=== PATIENT | male | born 1965 | race Caucasian/White ===

== ENCOUNTER 2019-05-01 14:22 | Emergency (ER) | payer OTHER ==
[2019-05-01] MEDS ORDERED: ACETAMINOPHEN 325 MG TABLET ONE (14:46)
[2019-05-01] MEDS ORDERED: HYDROCODONE/APAP 10/325 TAB ONE (14:46)
[2019-05-01 15:11] LABS: Absolute Lymphocytes (CBC) 0.6 K/uL (0.7-4.9); Basophils % 0.4 % (0-1.3); Hematocrit 48.1 % (39.6-49.0); Lymphocytes % 5.7 % (15.3-44.8); MPV 8.2 fL (7.6-11.3); RBC Red Blood Cell Count 4.94 M/uL (4.33-5.43)
[2019-05-01 15:12] LABS: Protime INR 3.28
[2019-05-01 15:29] LABS: Albumin 3.3 g/dL (3.4-5.0); Bilirubin Total 1.1 mg/dL (0.2-1.0); Potassium 4.4 mmol/L (3.5-5.1); Protein, Total 6.4 g/dL (6.4-8.2)
--- NOTE | 2019-05-01 16:07 | RAD REPORT ---
EXAM DESCRIPTION: US - Extremity Venous Uni Ltd - 05/01/2019 3:51 pm CLINICAL HISTORY: Left leg pain and swelling COMPARISON: None. TECHNIQUE: Real-time sonographic evaluation of the left lower extremity deep venous system was perfo rmed. FINDINGS: Normal compressibility, flow augmentation, phasic flow and spontaneous flow are identified in the left lower extremity common femoral, superficial femoral, popliteal and posterior tibial vein s. No intraluminal filling defects seen. Nonspecific left inguinal groin lymph nodes are present. IMPRESSION: No DVT in the left lower extremity.
[2019-05-01] MEDS ORDERED: NA CHLORIDE 0.9% 1,000 ML ONE (16:48)
[2019-05-01 18:24] LABS: Blood Morphology Comment NOT SEEN (NOT SEEN); Platelet Estimate ADEQ; Urine White Blood Cell Casts OK
--- NOTE | 2019-05-01 20:34 | EDPHYS ---
Physician Documentation [facility] Name: Rupert Riley Age: 53 yrs Sex: Male : 1965 Arrival Date: 05/01/2019 Time: 14:25 Bed 20 Private MD: ED Physician Riley South HPI: 05/01 14:48 This 53 yrs old Male presents to ER via Ambulatory with complaints of Leg Swelling. pm1 14:48 The patient presents with pain, swelling. The complaints affect the left calf. Context: pm1 The problem was sustained at home, resulted from an unknown cause, the patient can fully bear weight, the patient is able to ambulate. Onset: The symptoms/episode began/occurred yesterday. Modifying factors: The symptoms are alleviated by nothing. the symptoms are aggravated by nothing. Associated signs and symptoms: Pertinent positives: calf tenderness, fever, swelling, Pertinent negatives numbness, tingling. Treatment prior to arrival includes: no previous treatment. Severity of symptoms: in the emergency department the symptoms are unchanged. The patient has experienced a previous episode, approximately 18 years ago, and the symptoms today are exactly the same, Prior DVT to left lower leg. Historical: - Allergies: 14:35 No Known Allergies; ss - Immunization history:: Adult Immunizations up to date. - Social history:: Smoking status: Patient/guardian denies using tobacco. - Ebola Screening: : Patient denies exposure to infectious person Patient denies travel to an Ebola-affected area in the 21 days before illness onset. ROS: 14:48 Eyes: Negative for injury, pain, redness, and discharge, ENT: Negative for injury, pm1 pain, and discharge, Neck: Negative for injury, pain, and swelling, Cardiovascular: Negative for chest pain, palpitations, and edema, Respiratory: Negative for shortness of breath, cough, wheezing, and pleuritic chest pain, Abdomen/GI: Negative for abdominal pain, nausea, vomiting, diarrhea, and constipation. 14:48 Back: Negative for injury and pain, : Negative for injury, bleeding, discharge, and swelling. 14:48 Skin: Negative for injury, rash, and discoloration, Neuro: Negative for headache, weakness, numbness, tingling, and seizure. 14:48 Constitutional: Positive for fever, Negative for body aches. 14:48 MS/extremity: Positive for pain, swelling, of the left calf, Negative for decreased range of motion, deformity. Exam: 14:48 Constitutional: This is a well developed, well nourished patient who is awake, alert, pm1 and in no acute distress. Head/Face: Normocephalic, atraumatic. Eyes: Pupils equal round and reactive to light, extra-ocular motions intact. Lids and lashes normal. Conjunctiva and sclera are non-icteric and not injected. Cornea within normal limits. Periorbital areas with no swelling, redness, or edema. ENT: Nares patent. No nasal discharge, no septal abnormalities noted. Tympanic membranes are normal and external auditory canals are clear. Oropharynx with no redness, swelling, or masses, exudates, or evidence of obstruction, uvula midline. Mucous membranes moist. Neck: Trachea midline, no thyromegaly or masses palpated, and no cervical lymphadenopathy. Supple, full range of motion without nuchal rigidity, or vertebral point tenderness. No Meningismus. Chest/axilla: Normal chest wall appearance and motion. Nontender with no deformity. No lesions are appreciated. Cardiovascular: Regular rate and rhythm with a normal S1 and S2. No gallops, murmurs, or rubs. Normal PMI, no JVD. No pulse deficits. Respiratory: Lungs have equal breath sounds bilaterally, clear to auscultation and percussion. No rales, rhonchi or wheezes noted. No increased work of breathing, no retractions or nasal flaring. Abdomen/GI: Soft, non-tender, with normal bowel sounds. No distension or tympany. No guarding or rebound. No evidence of tenderness throughout. Back: No spinal tenderness. No costovertebral tenderness. Full range of motion. Skin: Warm, dry with normal turgor. Normal color with no rashes, no lesions, and no evidence of cellulitis. 14:48 Musculoskeletal/extremity: Extremities: grossly normal except: noted in the left calf: Focal area of tenderness, ROM: intact in all extremities, Circulation is intact in all extremities. Sensation intact. Vital Signs: 14:35 BP 165 / 98; Pulse 101; Resp 18; Temp 100.9(O); Pulse Ox 97% on R/A; Weight 113.4 kg; ss Height 6 ft. 2 in. (187.96 cm); Pain 8/10; 16:05 BP 156 / 90; Pulse 97; Resp 16; Pulse Ox 95% ; bp 17:21 BP 142 / 87; Pulse 90; Resp 18; Temp 100.7; Pulse Ox 98% ; Pain 8/10; ms 14:35 Body Mass Index 32.10 (113.40 kg, 187.96 cm) ss 17:21 Pt c/o pain on lower left extrimity ms MDM: 14:39 Patient medically screened. pm1 17:21 Data reviewed: vital signs. Data interpreted: Pulse oximetry: on room air is 95 %. pm1 Interpretation: normal. Counseling: I had a detailed discussion with the patient and/or guardian regarding: the historical points, exam findings, and any diagnostic results supporting the discharge/admit diagnosis, lab results, radiology results, the need for outpatient follow up, to return to the emergency department if symptoms worsen or persist or if there are any questions or concerns that arise at home. 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 Therefore I will cover the patient with doxycycline and recommend patient follow up with PCP or return to ER if symptoms worsen. 05/01 14:44 Order name: IV Saline Lock; Complete Time: 15:00 pm1 Administered Medications: 15:00 Drug: HYDROcodone-acetaminophen 10 mg-325 mg 1 tabs Route: PO; bp 16:52 Follow up: Response: Pain is decreased bp 15:00 Drug: Tylenol 650 mg Route: PO; bp 16:52 Follow up: Response: No adverse reaction bp 16:52 Drug: NS 0.9% 1000 ml Route: IV; Rate: 1000 ml; Site: right forearm; bp 17:53 Follow up: IV Status: Completed infusion bp Disposition: 05/02 07:25 Co-signature as Attending Physician, Riley South MD I agree with the assessment and kdr plan of care. Disposition: 05/01/19 17:22 Discharged to Home. Impression: Cellulitis of left lower limb, Pain in left leg, Dehydration, Localized edema - left leg. - Condition is Stable. - Discharge Instructions: Cellulitis, Adult, Dehydration, Adult, Rehydration, Adult, Peripheral Edema. - Prescriptions for Tylenol- Codeine #3 300-30 mg Oral Tablet - take 20 tablet by ORAL route every 6 hours As needed; 30 tablet. Doxycycline Hyclate 100 mg Oral Tablet - take 1 tablet by ORAL route every 12 hours; 20 tablet. - Medication Reconciliation Form, Thank You Letter, Antibiotic Education, Prescription Opioid Use form. - Follow up: Emergency Department; When: As needed; Reason: Worsening of condition. Follow up: Private Physician; When: 2 - 3 days; Reason: Recheck today's complaints, Continuance of care, Re-evaluation by your physician. - Problem is new. - Symptoms have improved. Signatures: Riley South MD MD [facility] Martina Fong RN RN ss Adryan Delvalle NP LENS POLISHER pm1 Blas Madlonado RN RN bp Corrections: (The following items were deleted from the chart) 05/01 17:22 17:22 05/01/2019 17:22 Discharged to Home. Impression: Pain in left leg. Condition is pm1 Stable. Forms are Medication Reconciliation Form, Thank You Letter, Antibiotic Education, Prescription Opioid Use. Follow up: Emergency Department; When: As needed; Reason: Worsening of condition. Follow up: Private Physician; When: 2 - 3 days; Reason: Recheck today's complaints, Continuance of care, Re-evaluation by your physician. Problem is new. Symptoms have improved. pm1 17:23 17:22 05/01/2019 17:22 Discharged to Home. Impression: Pain in left leg; Dehydration. pm1 Condition is Stable. Forms are Medication Reconciliation Form, Thank You Letter, Antibiotic Education, Prescription Opioid Use. Follow up: Emergency Department; When: As needed; Reason: Worsening of condition. Follow up: Private Physician; When: 2 - 3 days; Reason: Recheck today's complaints, Continuance of care, Re-evaluation by your physician. Problem is new. Symptoms have improved. pm1 17:51 17:23 05/01/2019 17:22 Discharged to Home. Impression: Pain in left leg; Dehydration; pm1 Localized edema - left leg. Condition is Stable. Discharge Instructions: Dehydration, Adult, Rehydration, Adult, Peripheral Edema. Forms are Medication Reconciliation Form, Thank You Letter, Antibiotic Education, Prescription Opioid Use. Follow up: Emergency Department; When: As needed; Reason: Worsening of condition. Follow up: Private Physician; When: 2 - 3 days; Reason: Recheck today's complaints, Continuance of care, Re-evaluation by your physician. Problem is new. Symptoms have improved. pm1 17:54 17:51 05/01/2019 17:22 Discharged to Home. Impression: Cellulitis of left lower bp limbPain in left leg; Dehydration; Localized edema - left leg. Condition is Stable. Discharge Instructions: Dehydration, Adult, Rehydration, Adult, Peripheral Edema, Cellulitis, Adult. Prescriptions for Tylenol-Codeine #3 300-30 mg Oral Tablet - take 20 tablet by ORAL route every 6 hours As needed; 30 tablet, Doxycycline Hyclate 100 mg Oral Tablet - take 1 tablet by ORAL route every 12 hours; 20 tablet. and Forms are Medication Reconciliation Form, Thank You Letter, Antibiotic Education, Prescription Opioid Use. Follow up: Emergency Department; When: As needed; Reason: Worsening of condition. Follow up: Private Physician; When: 2 - 3 days; Reason: Recheck today's complaints, Continuance of care, Re-evaluation by your physician. Problem is new. Symptoms have improved. pm1
--- NOTE | 2019-05-01 20:36 | ER ---
Nurse's Notes [facility] Name: Rupert Riley Age: 53 yrs Sex: Male : 1965 Arrival Date: 05/01/2019 Time: 14:25 Bed 20 Private MD: Diagnosis: Pain in left leg;Dehydration;Localized edema-left leg;Cellulitis of left lower limb Presentation: 05/01 14:33 Presenting complaint: Patient states: pain, swelling to L lower extremity and fever ss that began yesterday. Patient reports that his symptoms are the same the last time he had a DVT. Transition of care: patient was not received from another setting of care. Onset of symptoms was April 30, 2019. Risk Assessment: Do you want to hurt yourself or someone else? Patient reports no desire to harm self or others. Initial Sepsis Screen: Does the patient meet any 2 criteria? HR > 90 bpm. Does the patient have a suspected source of infection? No. Patient's initial sepsis screen is negative. Care prior to arrival: None. 14:33 Method Of Arrival: Ambulatory ss 14:33 Acuity: MAMTA 3 ss Triage Assessment: 14:35 General: Appears in no apparent distress. comfortable, Behavior is cooperative, bp appropriate for age, anxious. Pain: Complains of pain in left leg. EENT: No deficits noted. Neuro: No deficits noted. Cardiovascular: No deficits noted. Respiratory: No deficits noted. GI: No signs and/or symptoms were reported involving the gastrointestinal system. : No signs and/or symptoms were reported regarding the genitourinary system. Derm: No deficits noted. Musculoskeletal: Swelling present in left leg. Historical: - Allergies: 14:35 No Known Allergies; ss - Immunization history:: Adult Immunizations up to date. - Social history:: Smoking status: Patient/guardian denies using tobacco. - Ebola Screening: : Patient denies exposure to infectious person Patient denies travel to an Ebola-affected area in the 21 days before illness onset. Screenin:40 Abuse screen: Denies threats or abuse. Denies injuries from another. Nutritional bp screening: No deficits noted. Tuberculosis screening: No symptoms or risk factors identified. Fall Risk None identified. Assessment: 14:35 General: SEE TRIAGE NOTE. bp 15:01 Reassessment: PT TO U/S. bp 16:05 Reassessment: PT RETURN FROM U/S, RESULTS PENDING. bp 17:53 Reassessment: PT D/C HOME AMBULATORY WITH FAMILY, DX WITH CELLULITIS. bp Vital Signs: 14:35 BP 165 / 98; Pulse 101; Resp 18; Temp 100.9(O); Pulse Ox 97% on R/A; Weight 113.4 kg; ss Height 6 ft. 2 in. (187.96 cm); Pain 8/10; 16:05 BP 156 / 90; Pulse 97; Resp 16; Pulse Ox 95% ; bp 17:21 BP 142 / 87; Pulse 90; Resp 18; Temp 100.7; Pulse Ox 98% ; Pain 8/10; ms 14:35 Body Mass Index 32.10 (113.40 kg, 187.96 cm) ss 17:21 Pt c/o pain on lower left extrimity ms ED Course: 14:25 Patient arrived in ED. mr 14:25 Blas Maldonado, KRISTOPHER is Primary Nurse. bp 14:28 Adryan Delvalle NP is PHCP. pm1 14:28 Riley South MD is Attending Physician. pm1 14:35 Triage completed. ss 14:35 Arm band placed on right wrist. ss 14:40 Patient has correct armband on for positive identification. Bed in low position. Call bp light in reach. Side rails up X2. Adult w/ patient. 14:55 Inserted saline lock: 20 gauge in right forearm, using aseptic technique. Blood bp collected. 15:58 Ultrasound completed. hr 17:52 No provider procedures requiring assistance completed. IV discontinued, intact, bp bleeding controlled, No redness/swelling at site. Pressure dressing applied. Administered Medications: 15:00 Drug: HYDROcodone-acetaminophen 10 mg-325 mg 1 tabs Route: PO; bp 16:52 Follow up: Response: Pain is decreased bp 15:00 Drug: Tylenol 650 mg Route: PO; bp 16:52 Follow up: Response: No adverse reaction bp 16:52 Drug: NS 0.9% 1000 ml Route: IV; Rate: 1000 ml; Site: right forearm; bp 17:53 Follow up: IV Status: Completed infusion bp Outcome: 17:22 Discharge ordered by . pm1 17:54 Discharged to home ambulatory, with family. bp 17:54 Condition: stable 17:54 Discharge instructions given to patient, Instructed on discharge instructions, follow up and referral plans. medication usage, Demonstrated understanding of instructions, follow-up care, medications, Prescriptions given X 2. 17:54 Patient left the ED. bp Signatures: Donna Rice mr Ruth Denis Maria ms Smirch, Shelby, RN RN ss Adryan Delvalle, JOHN PROPERTY ADJUSTER pm1 Blas Maldonado, KRISTOPHER RN bp
[2019-05-01 22:22] VITALS: BP 142/87; TEMP 100.7; O2SAT 98
== END 2019-05-01 17:54 | disposition home or self-care (01) ==
LOC: ER 14:22
DX: L03.116 Cellulitis of left lower limb (principal); M79.605 Pain in left leg; R60.9 Edema, unspecified; E86.0 Dehydration
CPT/HCPCS: 85025; 36415; 85610; 80053; 93971; 96360; 99284; J7030

== ENCOUNTER 2020-04-01 13:03 | Emergency (ER) | payer OTHER ==
--- OUTSIDE RECORDS SUMMARY | 2020-04-01 13:14 | XMS REPORT | Summary of Care ---
:1965 Author Organization [facility] Address [address] [place] [address] Care Team Providers Name Role Phone Linda Recinos MD Primary Care Provider Reason for Visit Reason Comments Exposure Encounter Details Date Type Department Care Team Description 03/27/2020 Laboratory Only [facility] Family Javier Vernon, COLLEGE PROFESSOR [id number] [place] [address] Suspected 2019 [facility], Adc Fam Pob I Coronavirus [address] [facility] Infection ([address] Drive Dx) [place] [address] Allergies No Known Allergiesdocumented as of this encounter (statuses as of 03/27/2020) Medications Medication Sig Dispensed Refills Start Date End Date Status testosterone (ANDROGEL) Apply 1 Packet to 30 Packet 5 12/07/19 18 Active 1 % (50 mg/5 gram) gel skin daily. packetIndications: Testosterone insufficiency traMADOL 50 mg Take 1 tablet by 20 tablet 0 10/19/2018 Active tabletIndications: mouth every 6 Acute gout of right (six) hours as knee, unspecified cause needed for Pain (scale 1-3) or Pain (scale 4-6). triamcinolone acetonide Apply to area(s) 15 g 0 10/19/19 19 Active 0.1 % 2 (two) times ointmentIndications: daily. Acute gout of right knee, unspecified cause allopurinol 300 mg Take 1 tablet by 90 tablet 3 10/29/2018 Active tabletIndications: mouth daily. Acute gout of right knee, unspecified cause naproxen 500 mg Take 1 tablet by 30 tablet 1 10/29/2018 Active tabletIndications: mouth 2 (two) Acute gout of right times daily with knee, unspecified cause meals. doxycycline 100 mg Take 1 tablet by 14 tablet 0 05/13/2019 Active tabletIndications: mouth every 12 Stasis dermatitis of (twelve) hours. left lower extremity due to peripheral venous hypertension acetaminophen-codeine Take 1 tablet by 30 tablet 0 05/13/2019 Active 300-30 mg mouth every 8 tabletIndications: (eight) hours. Stasis dermatitis of left lower extremity due to peripheral venous hypertension benazepriL 20 mg Take 1 tablet by 90 tablet 3 01/05/2020 Active tabletIndications: mouth daily. Essential hypertension warfarin 5 mg TAKE ONE TABLET 30 tablet 2 03/15/2020 Active tabletIndications: BY MOUTH IN THE Warfarin EVENING anticoagulation, Chronic deep vein thrombosis (DVT) of proximal vein of left lower extremity documented as of this encounter (statuses as of 03/27/2020) Active Problems Problem Noted Date CKD (chronic kidney disease) stage 3, GFR 30-59 ml/min Overview: unsure of cause documented as of this encounter (statuses as of 03/27/2020) Immunizations Name Administration Dates Next Due Influenza Virus Vaccine Quad IM 3+ YRS 10/03/2017 documented as of this encounter Social History Tobacco Use Types Packs/Day Years Used Date Former Smoker Cigarettes Smokeless Tobacco: Current User Snuff Alcohol Use Drinks/Week oz/Week Comments Yes 20 drinks a week Sex Assigned at Date Recorded Not on file Job Start Date Occupation Industry Not on file Not on file Not on file Travel History Travel Start Travel End No recent travel history available. COVID-19 Exposure Response Date Recorded In the last month, have you been in contact with Yes 03/27/2020 2:08 PM CDT someone who was confirmed or suspected to have Coronavirus / COVID-19? documented as of this encounter Last Filed Vital Signs Not on filedocumented in this encounter Plan of Treatment Date Type Specialty Care Team Description 01/05/2021 Office Visit Cardiology Holly Dang M D [address] [id number] [phone] Name Type Priority Associated Diagnoses Order S chedule COVID-19 (PCR MOLECULAR LAB Routine Suspected 2018 No marcie Expected: 03/27/2020, TESTING) Coronavirus Infection s: 03/27/2021 Health Maintenance Due Date Last Done Comments DTaP,Tdap,and Td Vaccines (1 - 1975 Tdap) COLONOSCOPY 2014 Zoster Recombinant Vaccine 2014 (SHINGRIX) (1 of 2) LUNG CANCER SCREEN: Recommended 2019 for age 55-80 with 30 + pack year history INFLUENZA VACCINE (#1) 2020 10/03/2017 Depression Screening 05/06/2020 05/06/2019 HEPATITIS C (HCV) SCREEN Completed 10/04/2017 PNEUMOCOCCAL 0-64 YEARS COMBINED Aged Out No longer eligible based on SERIES patient's age to complete this topic documented as of this encounter Results Not on filedocumented in this encounter Visit Diagnoses Diagnosis Suspected 2018 Novel Coronavirus Infecti on - Primary documented in this encounter Additional Health Concerns Infection Onset Date Last Indicated Resolved Time COVID-19 Rule Out 03/27/2020 03/27/2020 documented as of this encounter documented as of this encounter
--- OUTSIDE RECORDS SUMMARY | 2020-04-01 13:14 | XMS REPORT | Summary of Care ---
:1965 Author Organization [facility] Address [address] [place] [address] Care Team Providers Name Role Phone Linda Recinos MD Primary Care Provider Reason for Visit Reason Comments Anticoagulation [facility] Encounter Details Date Type Department Care Team Description 03/01/2020 Telephone [facility] Holly Dang M D Anticoagulation ([facility]- [address] Home INR) [address] [facility], [address] [place], [place] [id number] [phone] Allergies No Known Allergiesdocumented as of this encounter (statuses as of 03/01/2020) Medications Medication Sig Dispensed Refills Start Date [...] lower extremity due to peripheral venous hypertension warfarin 5 mg TAKE ONE TABLET 30 tablet 2 10/06/2019 Active tabletIndications: BY MOUTH IN THE Warfarin EVENING anticoagulation, Chronic deep vein thrombosis (DVT) of proximal vein of left lower extremity benazepriL 20 mg Take 1 tablet by 90 tablet 3 01/05/2020 Active tabletIndications: mouth daily. Essential hypertension documented as of this encounter (statuses as of 03/01/2020) Active Problems Problem Noted Date CKD (chronic kidney disease) stage 3, GFR 30-59 ml/min Overview: unsure of cause documented as of this encounter (statuses as of 03/01/2020) Immunizations Name Administration Dates Next Due Influenza [...] Travel End No recent travel history available. documented as of this encounter Last Filed Vital Signs Not on filedocumented in this encounter Plan of Treatment Date Type Specialty Care Team Description 01/05/2021 Office Visit Cardiology Holly Dang M D [address] [place] [address] Health Maintenance Due Date Last Done Comments DTaP,Tdap,and Td Vaccines (1 - 1975 Tdap) COLONOSCOPY 2014 Zoster Recombinant Vaccine 2014 (SHINGRIX) (1 of 2) LUNG CANCER SCREEN: Recommended 2019 for age 55-80 with 30 + pack year history INFLUENZA VACCINE (Season Ended) 2020 10/03/2017 Depression Screening 05/06/2020 05/06/2019 HEPATITIS C (HCV) SCREEN Completed 10/04/2017 PNEUMOCOCCAL 0-64 YEARS COMBINED Aged Out No longer eligible based on SERIES patient's age to complete this topic documented as of this encounter Results Not on filedocumented in this encounter Insurance Payer Benefit Plan / Group Subscriber ID Effective Dates Phone Address Type AETNA [facility]NA [facility] [id number] 2017-Present PPO documented as of this encounter
--- OUTSIDE RECORDS SUMMARY | 2020-04-01 13:14 | XMS REPORT | Summary of Care ---
:1965 Author Organization [facility] Address [address] [place] [address] Care Team Providers Name Role Phone Linda Recinos MD Primary Care Provider Reason for Visit Reason Comments Follow-up Encounter Details Date Type Department Care Team Description 01/05/2020 Telemedicine Visit [facility] Holly Dang Essenti al hypertension (Primary Dx); Cardiology- MD CKD (chronic kidney disease) stage 3, GF R 30-59 ml/min; [address] Chronic deep vein thrombosis (DVT) of proximal vein of left lower extremity [address] [facility] [address] [place] [address] [phone] Allergies No Known Allergiesdocumented as of this encounter (statuses as of 01/05/2020) Medications Medication Sig Dispensed Refills Start Date End Date Status testosterone Apply 1 30 Packet 5 12/06/2017 Active (ANDROGEL) 1 % (50 Packet to mg/5 gram) gel skin daily. packetIndications: Testosterone insufficiency traMADOL 50 mg Take 1 20 tablet 0 10/19/2018 Acti ve tabletIndications: tablet by Acute gout of right mouth every knee, unspecified 6 (six) cause hours as needed for Pain (scale 1-3) or Pain (scale 4-6). triamcinolone Apply to 15 g 0 10/19/2018 Activ e acetonide 0.1 % area(s) 2 ointmentIndications (two) times : Acute gout of daily. right knee, unspecified cause allopurinol 300 mg Take 1 90 tablet 3 10/29/2018 Active tabletIndications: tablet by Acute gout of right mouth daily. knee, unspecified cause naproxen 500 mg Take 1 30 tablet 1 10/29/2018 Act jonathon tabletIndications: tablet by Acute gout of right mouth 2 knee, unspecified (two) times cause daily with meals. doxycycline 100 mg Take 1 14 tablet 0 05/13/2019 Active tabletIndications: tablet by Stasis dermatitis mouth every of left lower 12 (twelve) extremity due to hours. peripheral venous hypertension acetaminophen-codei Take 1 30 tablet 0 05/13/2019 Active ne 300-30 mg tablet by tabletIndications: mouth every Stasis dermatitis 8 (eight) of left lower hours. extremity due to peripheral venous hypertension warfarin 5 mg TAKE ONE 30 tablet 2 10/06/2019 Activ e tabletIndications: TABLET BY Warfarin MOUTH IN THE anticoagulation, EVENING Chronic deep vein thrombosis (DVT) of proximal vein of left lower extremity benazepriL 20 mg Take 1 90 tablet 3 01/05/2020 Ac tive tabletIndications: tablet by Essential mouth daily. hypertension benazepril 20 mg Take 1 30 tablet 3 07/22/2019 Di scontinued tablet tablet by 0 (Reorder) mouth daily. documented as of this encounter (statuses as of 01/05/2020) Active Problems Problem Noted Date CKD (chronic kidney disease) stage 3, GFR 30-59 ml/min Overview: unsure of cause documented as of this encounter (statuses as of 01/05/2020) Immunizations Name Administration Dates Next Due Influenza [...] Signs Not on filedocumented in this encounter Progress Notes Holly Dang MD - 01/05/2020 3:20 PM CDT CARDIOLOGY CLINIC NOTE 01/05/2020 Reason for Referral/Presenting Complaint: HTN, DVT PCP: Natasha Recinos History of Present Illness: Rupert Riley is a 54 years old male with history of HTN, CKD 3, obesity, and DVT. Had provoked LLE DVT (knee immobilization) in 2000. Then an unprovoked LLE DVT when he stopped anticoagulation (now on lifelong coumadin). INR has been therapeutic. No bleeding. Feeling well without chest pain or SOB. BP is controlled 125/80. Weight 240-250 lbs. Review of Systems: General: (-) fever, (-) chills, (-) weight change, (-) dizziness, (-) fatigue Skin: (-) rash HEENT: (-) headache, (-) change in vision Neck: (-) difficulty swallowing Heme: negative Resp: (-) cough, (-) dyspnea on exertion Cardio: (-) chest pain, (-) palpitations, (-) syncope GI: (-) vomiting, (-) diarrhea : negative Endo: (-) diabetes, (-) thyroid disease Neuro: (-) numbness, (-) tingling, (-) weakness Back: (-) pain JACKELIN: (-) muscle pain, (-) claudication Psych: (-) anxiety, (-) depression Past Medical History: Past Medical History: Diagnosis Date Alcohol abuse Arthritis right shoulder, hands, back CKD (chronic kidney disease) stage 3, GFR 30-59 ml/min unsure of cause DVT (deep venous thrombosis) H/O blood transfusion reaction complications from appendectomy/appendicitis HTN (hypertension) Varicose vein of leg VSD (ventricular septal defect) at , possibly closed up per patient Current Medications: Current Outpatient Medications Medication Sig Dispense Refill benazepriL 20 mg tablet Take 1 tablet by mouth daily. 90 tablet 3 warfarin 5 mg tablet TAKE ONE TABLET BY MOUTH IN THE EVENING 30 tablet 2 acetaminophen-codeine 300-30 mg tablet Take 1 tablet by mouth every 8 (eight) hours. 30 tablet 0 doxycycline 100 mg tablet Take 1 tablet by mouth every 12 (twelve) hours. 14 tablet 0 allopurinol 300 mg tablet Take 1 tablet by mouth daily. 90 tablet 3 naproxen 500 mg tablet Take 1 tablet by mouth 2 (two) times daily with meals. 30 tablet 1 traMADOL 50 mg tablet Take 1 tablet by mouth every 6 (six) hours as needed for Pain (scale 1-3) or Pain (scale 4-6). 20 tablet 0 triamcinolone acetonide 0.1 % ointment Apply to area(s) 2 (two) times daily. 15 g 0 testosterone (ANDROGEL) 1 % (50 mg/5 gram) gel packet Apply 1 Packet to skin daily. 30 Packet 5 No current facility-administered medications for this visit. Social History: Social History Socioeconomic History Marital status: Single Spouse name: Not on file Number of children: Not on file Years of education: Not on file Highest education level: Not on file Occupational History Occupation: maintenance: air conditioning, electrical Social Needs Financial resource strain: Not on file Food insecurity: Worry: Not on file Inability: Not on file Transportation needs: Medical: Not on file Non-medical: Not on file Tobacco Use Smoking status: Former Smoker Types: Cigarettes Smokeless tobacco: Current User Types: Snuff Substance and Sexual Activity Alcohol use: Yes Comment: 20 drinks a week Drug use: No Sexual activity: Not on file Lifestyle Physical activity: Days per week: Not on file Minutes per session: Not on file Stress: Not on file Relationships Social connections: Talks on phone: Not on file Gets together: Not on file Attends orthodoxy service: Not on file Active member of club or organization: Not on file Attends meetings of clubs or organizations: Not on file Relationship status: Not on file Intimate partner violence: Fear of current or ex partner: Not on file Emotionally abused: Not on file Physically abused: Not on file Forced sexual activity: Not on file Other Topics Concern Not on file Social History Narrative Not on file Family History Family History Problem Relation Age of Onset Breast Cancer Mother Hypertension Father Diabetes Father Thyroid Sister hyperthyroid Thyroid Maternal Grandmother had goiter Thyroid Sister 2 sisters with low thyroid Physical Examination: Constitutional: Alert and in no distress Respiratory: Breathing comfortably Neurology: Answers questions appropriately Cardiovascular testing: EKG: Normal sinus rhythm. LAD. Non-specific ST-T abnormality Assessment/Plan: ICD-10-CM ICD-9-CM 1. Essential hypertension I10 401.9 2. CKD (chronic kidney disease) stage 3, GFR 30-59 ml/min N18.3 585.3 3. Chronic deep vein thrombosis (DVT) of proximal vein of left lower extremity I82.5Y2 453.51 Left lower extremity DVT--Will continue warfarin with INR 2-3. Monthly INR if stable. HTN--Well controlled on benazepril. CKD 3--stable Patient was counseled for lifestyle modifications including: diet, exercise and weight loss. RTC 1 year Telehealth service ? Verbal consent obtained from patient Rupert Riley for telehealth sevice provided ? My location: [facility] cardiology clinic ? Patient location: Home ? Format: Communication with patient was conducted via Telephone due to patient unable to obtain video call option ? A total of 15 minutes spent on the telephone with the patient/chart review/documentation Holly Dang MD, FACC, IVA Research Technician, Division of Cardiology [facility] documented in this encounter Plan of Treatment Health Maintenance Due Date Last Done Comments DTaP,Tdap,and Td Vaccines (1 - 1975 Tdap) COLONOSCOPY 2014 Zoster Recombinant Vaccine 2014 (SHINGRIX) (1 of 2) LUNG CANCER SCREEN: Recommended 2019 for age 55-80 with 30 + pack year history INFLUENZA VACCINE (Season Ended) 2020 10/03/2017 HEPATITIS C (HCV) SCREEN Completed 10/04/2017 PNEUMOCOCCAL 0-64 YEARS COMBINED Aged Out No longer eligible based on SERIES patient's age to complete this topic documented as of this encounter Results Not on filedocumented in this encounter Visit Diagnoses Diagnosis Essential hypertension - Primary Unspecified essential hypertension CKD (chronic kidney disease) stage 3, GF R 30-59 ml/min Chronic kidney disease, Stage III (moder ate) Chronic deep vein thrombosis (DVT) of pr oximal vein of left lower extremity documented in this encounter documented as of this encounter
--- OUTSIDE RECORDS SUMMARY | 2020-04-01 13:14 | XMS REPORT | Summary of Care ---
:1965 Author Organization [facility] Address [address] [place] [address] Care Team Providers Name Role Phone Linda Recinos MD Primary Care Provider Reason for Visit Reason Comments Anticoagulation INR Encounter Details Date Type Department Care Team Description 01/03/2020 Telephone [facility] Holly Dang M D Anticoagulation (INR) Cardiology- [address] [place], [place] [phone] Allergies No Known Allergiesdocumented as of this [...] lower extremity due to peripheral venous hypertension benazepril 20 mg tablet Take 1 tablet by 30 tablet 3 9 Active mouth daily. warfarin 5 mg TAKE ONE TABLET 30 [...] Treatment Date Type Specialty Care Team Description 01/05/2020 Telemedicine Visit Cardiology Holly Dang MD Arrived [address] [facility] [address] [place] [address] [phone] Health Maintenance Due Date Last Done Comments [...] Effective Dates Phone Address Type AETNA AETNA [facility] C[facility] [id number] 2017-Present PPO documented as of this encounter
--- OUTSIDE RECORDS SUMMARY | 2020-04-01 13:14 | XMS REPORT | Summary of Care ---
:1965 Author Organization [facility] Address [address] [place] [address] Care Team Providers Name Role Phone Linda Recinos MD Primary Care Provider Reason for Visit Reason Comments Refill Request Encounter Details Date Type Department Care Team Description 03/11/[address] [facility] Cardiology- Tunde Dang MD Refill Request [place] [address] [facility] 146 [facility], [address] [place] [address] [place] [address] [phone] Allergies No Known Allergiesdocumented as of this encounter (statuses as of 03/15/2020) Medications Medication Sig Dispensed Refills Start Date [...] hours. extremity due to peripheral venous hypertension benazepriL 20 mg Take 1 90 tablet 3 01/05/2020 Ac tive tabletIndications: tablet by Essential mouth daily. hypertension warfarin 5 mg TAKE ONE 30 tablet 2 03/15/2020 Activ e tabletIndications: TABLET BY Warfarin MOUTH IN THE anticoagulation, EVENING Chronic deep vein thrombosis (DVT) of proximal vein of left lower extremity warfarin 5 mg TAKE ONE 30 tablet 2 10/06/2019 Disco ntinued tabletIndications: TABLET BY 0 ( Reorder) Warfarin MOUTH IN THE anticoagulation, EVENING Chronic deep vein thrombosis (DVT) of proximal vein of left lower extremity documented as of this encounter (statuses as of 03/15/2020) Active Problems Problem Noted Date CKD (chronic kidney disease) stage 3, GFR 30-59 ml/min Overview: unsure of cause documented as of this encounter (statuses as of 03/15/2020) Immunizations Name Administration Dates Next Due Influenza [...] Visit Cardiology Holly Dang M D [address] [facility] [address] [place] [address] [phone] Health Maintenance Due Date Last Done Comments [...] filedocumented in this encounter Visit Diagnoses Diagnosis Warfarin anticoagulation Encounter for long-term (current) use of anticoagulants Chronic deep vein thrombosis (DVT) of pr oximal vein of left lower extremity documented in this encounter Insurance Payer Benefit Plan / Group Subscriber ID Effective Dates Phone Address Type AETNA AETNA [facility] [id number] 2017-Present PPO documented as of this encounter
--- OUTSIDE RECORDS SUMMARY | 2020-04-01 13:14 | XMS REPORT | Continuity of Care Document ---
:[address] [facility] t Address [address] [place] [address] Care Team Providers Name Role Phone Lab, Fam Pob I Attending Clinician Unavailable Alton AGUERO Attending Clinician Doctor Unassigned, Name Attending Clinician Unavailable Jorje AGUERO, A Attending Clinician Vicky Felder MD Attending Clinician Problems This patient has no known problems. Allergies, Adverse Reactions, Alerts This patient has no known allergies or adverse reactions. Medications This patient has no known medications. Procedures This patient has no known procedures. Encounters Start End Encounter Admission Attending Care Care Encounter Source Date/Time Date/Time Type Type Clinicians Facility Department ID 2020-03-27 2020-03-27 Laboratory Lab, [facility] [id number] 13:57:13 14:17:13 Only Fam Pob I [facility] [id number] [place] [id number] Professio [phone] nal 0[address] One 2020-03-11 2020-03-11 Refill Alton NYCHHAYA [id number] 00:00:00 00:00:00 Holly Farmer [id number] [place] [id number] Professio [phone] nal 059 Building 2020-03-01 2020-03-01 Telephone [place] NYCHHAYA [id number] 00:00:00 00:00:00 Holly Farmer [id number] [place] [id number] Professio [phone] [address] 2020-02-27 2020-02-27 Orders Doctor AYANA [id number] 00:00:00 00:00:00 Only Unassigned, FRANCIS [id number] [facility] [phone] 009 2020-01-05 2020-01-05 Telemedici [facility] [id number] 08:37:29 08:57:29 ne Visit Holly Brownton [id number] [place] [id number] Professio [phone] [address] 2020-01-03 2020-01-03 Telephone [facility] [id number] 00:00:00 00:00:00 Holly Farmer [id number] [place] [id number] Professio [phone] [address] 2020-01-02 2020-01-02 Orders Doctor AYANA [id number] 00:00:00 00:00:00 Only Unassigned, FRANCIS [id number] [facility] [id number] [phone] 009 2019-11-18 2019-11-18 Orders Doctor AYANA [id number] 00:00:00 00:00:00 Only Unassigned, FRANCIS [id number] [facility] [phone] 009 2019-10-28 2019-10-28 Telephone [facility] [id number] 00:00:00 00:00:00 Tundemarieric Marleny [id number] [place] [id number] Professio [phone] [address] 2019-10-25 2019-10-25 Orders Doctor AYANA [id number] 00:00:00 00:00:00 Only Unassigned, FRANCIS [id number] [facility] [id number] 009 2019-10-06 2019-10-06 Refshiela Dang [facility] [id number] 00:00:00 00:00:00 Holly Marleny [id number] [place] [id number] Professio [phone] nal 059 [facility] 2019-10-04 2019-10-04 Orders Doctor PIÑA 1.2.840.114 [id number] 00:00:00 00:00:00 Only Unassigned, FRANCIS [id number] [facility] [id number] [id number] 2019-09-07 2019-09-07 Orders Doctor PIÑA 1.2.840.114 [id number] 00:00:00 00:00:00 Only Unassigned, FRANCIS [id number] [place] [facility] [id number] [phone] [facility] 2019-05-20 2019-05-20 Patient Jorje [facility] [id number] 00:00:00 00:00:00 Secure Msg Natasha Farmer [id number] [place] [id number] Professio [phone] nal 231 [facility] 2019-05-09 2019-05-09 Refill Jorje [facility] [id number] 00:00:00 00:00:00 Natasha Farmer [id number] [place] [id number] Professio [phone] nal 044 [facility] 2019-05-06 2019-05-06 Office BradfordYaw [facility] [id number] 09:17:18 10:38:08 Visit C Marleny [id number] [place] [id number] Professio [phone] [facility] 044 [facility] Results This patient has no known results.
--- OUTSIDE RECORDS SUMMARY | 2020-04-01 13:14 | XMS REPORT | Summary of Care ---
:1965 Author Organization [facility] - Health Address [address] [place] [address] Care Team Providers Name Role Phone Linda Recinos MD Primary Care Provider Encounter Details Date Type Department Care Team Description 02/27/2020 Orders Only [facility] Doctor Unassigned, No [address] [facility] Name [place] [phone] [place] [address] Allergies No Known Allergiesdocumented as of this encounter (statuses as of 03/08/2020) Medications Medication Sig Dispensed Refills Start Date [...] as of this encounter (statuses as of 03/08/2020) Active Problems Problem Noted Date CKD (chronic kidney disease) stage 3, GFR 30-59 ml/min Overview: unsure of cause documented as of this encounter (statuses as of 03/08/2020) Immunizations Name Administration Dates Next Due Influenza [...] Office Visit Cardiology Holly Dang M D [address] [place] [address] [phone] Health Maintenance Due Date Last Done Comments [...] this topic documented as of this encounter Procedures Procedure Name Priority Date/Time Associated Diagnosis Comme nts SCANNED LAB RESULTS Routine 02/27/2020 12:01 AM CDT documented in this encounter Results SCANNED LAB RESULTS (02/27/2020 12:01 AM CDT) Specimen Performing Organization Address City/State/Zipcode Phone Number HIM documented in this encounter Insurance Payer Benefit Plan / Group Subscriber ID Effective Dates Phone Address Type AETNA AETNA [facility] CARE [id number] 2017-Present PPO documented as of this encounter
--- OUTSIDE RECORDS SUMMARY | 2020-04-01 13:14 | XMS REPORT | Summary of Care ---
:1965 Author Organization [facility] - Health Address [address] [place] [address] Care Team Providers Name Role Phone Linda Recinos MD Primary Care Provider Encounter Details Date Type Department Care Team Description 01/02/2020 Orders Only [facility] Doctor Unassigned, No [address] [facility] [place] [address] [address] [place] [address] Allergies No Known Allergiesdocumented as of this encounter (statuses as of 01/13/2020) Medications Medication Sig Dispensed Refills Start Date [...] as of this encounter (statuses as of 01/13/2020) Active Problems Problem Noted Date CKD (chronic kidney disease) stage 3, GFR 30-59 ml/min Overview: unsure of cause documented as of this encounter (statuses as of 01/13/2020) Immunizations Name Administration Dates Next Due Influenza [...] Visit Cardiology Holly Dang M D [address] [place] [address] [phone] Health Maintenance Due Date Last Done Comments [...] Diagnosis Comme nts SCANNED LAB RESULTS Routine 01/02/2020 12:01 AM CDT documented in this encounter Results SCANNED LAB RESULTS (01/02/2020 12:01 AM CDT) Specimen Performing Organization Address City/State/Zipcode Phone Number HIM documented in this encounter Insurance Payer Benefit Plan / Group Subscriber ID Effective Dates Phone Address Type AETNA AETNA [facility] [id number] 2017-Present PPO documented as of this encounter
--- NOTE | 2020-04-01 14:43 | EDPHYS ---
Physician Documentation [facility] Name: Rupert Riley Age: 54 yrs Sex: Male : 1965 Arrival Date: 04/01/2020 Time: 13:04 Bed 16 Private MD: ED Physician Riley South HPI: 04/02 10:59 This 54 yrs old Male presents to ER via Ambulatory with complaints of COVID+, kdr Shortness Of Breath. 10:59 The patient has shortness of breath at rest, with light activity. Onset: The kdr symptoms/episode began/occurred gradually, 5 day(s) ago. Duration: The symptoms are continuous, and are steadily getting worse, are intermittent, with no pattern. The patient's shortness of breath is aggravated by exertion, light activity, is alleviated by nothing. Associated signs and symptoms: Pertinent positives: non-productive cough, fever, Pertinent negatives: chest pain, diaphoresis, dizziness, hemoptysis, loss of consciousness, nausea, numbness in extremities, visual changes, vomiting. Severity of symptoms: At their worst the symptoms were mild moderate just prior to arrival, in the emergency department the symptoms have improved mildly. The patient has not experienced similar symptoms in the past. Had positive COVID test at [facility] on Sunday. Historical: - Allergies: 04/01 13:15 No Known Allergies; iw - Home Meds: 13:15 warfarin 5 mg Oral tab 1 tab once daily [Active]; benazepril 20 mg oral tab 1 tab once iw daily [Active]; - PMHx: 13:15 DVT; Hypertension; impaired kidney function; iw - PSHx: 13:15 Appendectomy; iw - Immunization history:: Adult Immunizations not up to date. - Social history:: Smoking status: Patient/guardian denies using tobacco, the patient reports quitting approximately 10 years ago. ROS: 04/02 10:59 Constitutional: Negative for fever, chills, and weight loss, Eyes: Negative for injury, kdr pain, redness, and discharge, Neck: Negative for injury, pain, and swelling, Cardiovascular: Negative for chest pain, palpitations, and edema, Respiratory: Negative for shortness of breath, cough, wheezing, and pleuritic chest pain, Abdomen/GI: Negative for abdominal pain, nausea, vomiting, diarrhea, and constipation, Back: Negative for injury and pain, : Negative for injury, bleeding, discharge, and swelling, MS/Extremity: Negative for injury and deformity, Skin: Negative for injury, rash, and discoloration, Neuro: Negative for headache, weakness, numbness, tingling, and seizure activity. Psych: Negative for depression, anxiety, suicide ideation, homicidal ideation, and hallucinations, Allergy/Immunology: Negative for hives, rash, and allergies, Endocrine: Negative for neck swelling, polydipsia, polyuria, polyphagia, and marked weight changes, Hematologic/Lymphatic: Negative for swollen nodes, abnormal bleeding, and unusual bruising. Exam: 10:59 Constitutional: This is a well developed, well nourished patient who is awake, alert, kdr and in no acute distress. Head/Face: Normocephalic, atraumatic. Eyes: Pupils equal round and reactive to light, extra-ocular motions intact. Lids and lashes normal. Conjunctiva and sclera are non-icteric and not injected. Cornea within normal limits. Periorbital areas with no swelling, redness, or edema. Neck: Trachea midline, no thyromegaly or masses palpated, and no cervical lymphadenopathy. Supple, full range of motion without nuchal rigidity, or vertebral point tenderness. No Meningismus. Chest/axilla: Normal chest wall appearance and motion. Nontender with no deformity. No lesions are appreciated. Cardiovascular: Regular rate and rhythm with a normal S1 and S2. No gallops, murmurs, or rubs. Normal PMI, no JVD. No pulse deficits. Respiratory: Lungs have equal breath sounds bilaterally, clear to auscultation and percussion. No rales, rhonchi or wheezes noted. No increased work of breathing, no retractions or nasal flaring. Abdomen/GI: Soft, non-tender, with normal bowel sounds. No distension or tympany. No guarding or rebound. No evidence of tenderness throughout. Back: No spinal tenderness. No costovertebral tenderness. Full range of motion. Skin: Warm, dry with normal turgor. Normal color with no rashes, no lesions, and no evidence of cellulitis. MS/ Extremity: Pulses equal, no cyanosis. Neurovascular intact. Full, normal range of motion. Neuro: Awake and alert, GCS 15, oriented to person, place, time, and situation. Cranial nerves II-XII grossly intact. Motor strength 5/5 in all extremities. Sensory grossly intact. Cerebellar exam normal. Normal gait. Psych: Awake, alert, with orientation to person, place and time. Behavior, mood, and affect are within normal limits. Vital Signs: 04/01 13:11 BP 116 / 93; Pulse 108; Resp 18 S; Temp 99.0; Pulse Ox 98% on R/A; Weight 117.93 kg; iw Height 6 ft. 3 in. (190.50 cm); 15:00 BP 110 / 87; Pulse 107; Resp 20; Temp 99.3; Pulse Ox 98% ; jr10 13:11 Body Mass Index 32.50 (117.93 kg, 190.50 cm) iw MDM: 14:42 Patient medically screened. kdr 04/02 10:59 Data reviewed: vital signs, nurses notes, lab test result(s), radiologic studies. kdr Counseling: I had a detailed discussion with the patient and/or guardian regarding: the historical points, exam findings, and any diagnostic results supporting the discharge/admit diagnosis, lab results, radiology results, the need for outpatient follow up. 04/01 13:28 Order name: COVID-19 kdr 04/01 13:28 [id number] ; Complete Time: 14:52 kdr 04/01 13:28 Order name: O2 Per Protocol; Complete Time: 14:52 kdr Administered Medications: No medications were administered Disposition: 04/01/20 14:42 Discharged to Home. Impression: Shortness of breath, Viral infection, unspecified - COVID-19 . - Condition is Stable. - Discharge Instructions: Shortness of Breath, [id number], Viral Respiratory Infection, [id number], COVID-19. - Medication Reconciliation Form, Thank You Letter form. - Follow up: Private Physician; When: 2 - 3 days; Reason: If symptoms return, Further diagnostic work-up, Recheck today's complaints, Continuance of care, Re-evaluation by your physician. - Problem is an ongoing problem. - Symptoms are unchanged. Signatures: Dispatcher [employer] EDMS Riley South MD MD kdr Margret Brown RN RN iw Elif Rcie RN RN jr10 Corrections: (The following items were deleted from the chart) 04/01 14: 13:28 Document PUI# ordered. [facility] jr10 13:28 Droplet/Contact Precautions ordered. [facility] jr10 13:28 Labs collected and sent ordered. kdr jr10 15:22 14:42 04/01/2020 14:42 Discharged to Home. Impression: Shortness of breath; Viral jr10 infection, unspecified - COVID-19 . Condition is Stable. Forms are Medication Reconciliation Form, Thank You Letter, Antibiotic Education, Prescription Opioid Use. Follow up: Private Physician; When: 2 - 3 days; Reason: If symptoms return, Further diagnostic work-up, Recheck today's complaints, Continuance of care, Re-evaluation by your physician. Problem is an ongoing problem. Symptoms are unchanged. kdr
--- NOTE | 2020-04-01 14:43 | ER ---
Nurse's Notes [facility] Name: Rupert Riley Age: 54 yrs Sex: Male : 1965 Arrival Date: 04/01/2020 Time: 13:04 Bed 16 Private MD: Diagnosis: Shortness of breath;Viral infection, [id number] Presentation: 04/01 13:11 Chief complaint: Patient states: tested positive for COVID on Sunday at [facility], now is iw having increasing fatigue and sometimes has labored breathing, also has body aches, fever. Coronavirus screen: Prior COVID test Client reports previous positive COVID test result. Ebola Screen: Patient negative for fever greater than or equal to 101.5 degrees Fahrenheit, and additional compatible Ebola Virus Disease symptoms Patient denies exposure to infectious person. Patient denies travel to an Ebola-affected area in the 21 days before illness onset. No symptoms or risks identified at this time. Initial Sepsis Screen: Does the patient meet any 2 criteria? No. Patient's initial sepsis screen is negative. Does the patient have a suspected source of infection? No. Patient's initial sepsis screen is negative. Risk Assessment: Do you want to hurt yourself or someone else? Patient reports no desire to harm self or others. Onset of symptoms was March 26, 2020. 13:11 Method Of Arrival: Ambulatory iw 13:11 Acuity: MAMTA 3 iw Historical: - Allergies: 13:15 No Known Allergies; iw - Home Meds: 13:15 warfarin 5 mg Oral tab 1 tab once daily [Active]; benazepril 20 mg oral tab 1 tab once iw daily [Active]; - PMHx: 13:15 DVT; Hypertension; impaired kidney function; iw - PSHx: 13:15 Appendectomy; iw - Immunization history:: Adult Immunizations not up to date. - Social history:: Smoking status: Patient/guardian denies using tobacco, the patient reports quitting approximately 10 years ago. Screenin:30 Abuse screen: Denies threats or abuse. Denies injuries from another. Nutritional jr10 screening: No deficits noted. Tuberculosis screening: No symptoms or risk factors identified. Fall Risk None identified. Assessment: 13:30 General: Appears in no apparent distress. Behavior is calm, cooperative, appropriate jr10 for age. Pain: Denies pain. Neuro: No deficits noted. Cardiovascular: No deficits noted. Denies chest pain. Respiratory: Reports shortness of breath at rest on exertion Airway is patent Respiratory effort is even, unlabored, Respiratory pattern is regular, symmetrical, Breath sounds are clear bilaterally. Onset: The symptoms/episode began/occurred one week ago, the patient has mild shortness of breath. GI: No deficits noted. : No deficits noted. Derm: No deficits noted. Musculoskeletal: Reports weakness in pt reports generalized fatigue and weakness. 14:34 Reassessment: ambulated around nurses station with pulse ox, sats noted to stay above jr10 95% with ambulation, mild increased in HR that resolved with rest. Dr South notified and aware. Will await dispo instructions. Pt remains without distress. Vital Signs: 13:11 BP 116 / 93; Pulse 108; Resp 18 S; Temp 99.0; Pulse Ox 98% on R/A; Weight 117.93 kg; iw Height 6 ft. 3 in. (190.50 cm); 15:00 BP 110 / 87; Pulse 107; Resp 20; Temp 99.3; Pulse Ox 98% ; jr10 13:11 Body Mass Index 32.50 (117.93 kg, 190.50 cm) iw ED Course: 13:04 Patient arrived in ED. ag5 13:13 Triage completed. iw 13:15 Arm band placed on. iw 13:27 Riley South MD is Attending Physician. kdr 13:30 Patient has correct armband on for positive identification. Bed in low position. Call jr10 light in reach. Side rails up X2. Pulse ox on. NIBP on. 14:21 Elif Rice, KRISTOPHER is Primary Nurse. jr10 14:34 No provider procedures requiring assistance completed. Patient did not have IV access jr10 during this emergency room visit. Administered Medications: No medications were administered Outcome: 14:42 Discharge ordered by . kdr 15:21 Discharged to home ambulatory. jr10 15:21 Condition: stable 15:21 Discharge instructions given to patient, Instructed on discharge instructions, follow up and referral plans. reasons for returning to the ED and self quarantine Demonstrated understanding of instructions, follow-up care. 15:22 Patient left the ED. jr10 Signatures: Riley South MD MD kdr Margret Brown RN RN Charis Hernandez ag5 Elif Rice, RN RN jr10 Corrections: (The following items were deleted from the chart) : 13:30 Respiratory: Reports shortness of breath at rest on exertion Airway is patent jr10 Respiratory effort is even, unlabored, Respiratory pattern is regular, symmetrical, Breath sounds are clear bilaterally. jr10 : 13:30 Respiratory: Reports shortness of breath at rest on exertion Airway is patent jr10 Respiratory effort is even, unlabored, Respiratory pattern is regular, symmetrical, Breath sounds are clear bilaterally. the patient has mild shortness of breath jr10
[2020-04-01 15:38] VITALS: O2SAT 98
[2020-04-01 15:39] VITALS: BP 110/87; TEMP 99.3
== END 2020-04-01 15:22 | disposition home or self-care (01) ==
LOC: ER 13:03
DX: U07.1 COVID-19 (principal); B34.9 Viral infection, unspecified; I10 Essential (primary) hypertension; Z86.718 Personal history of other venous thrombosis and embolism; Z79.01 Long term (current) use of anticoagulants
CPT/HCPCS: 99283

== ENCOUNTER 2022-04-03 10:15 | Emergency (ER) | payer OTHER ==
[2022-04-03 11:00] LABS: Absolute Lymphocytes (CBC) 1.1 K/uL (0.7-4.9); Hematocrit 50.5 % (39.6-49.0); Lymphocytes % 16.7 % (15.3-44.8); MCV 95.8 fL (80-100); MPV 7.3 fL (7.6-11.3); RBC Red Blood Cell Count 5.27 M/uL (4.33-5.43)
[2022-04-03 11:02] LABS: Protime INR 3.91
[2022-04-03] MEDS ORDERED: HYDRALAZINE HCL 20 MG/ML VIAL ONE (11:05)
[2022-04-03 11:19] LABS: Potassium 4.8 mmol/L (3.5-5.1); Troponin High Sensitivity 13.7 pg/mL (<58.9)
[2022-04-03 13:36] VITALS: TEMP 97.9
[2022-04-03 13:55] VITALS: O2SAT 97
[2022-04-03 14:03] VITALS: BP 151/92
--- NOTE | 2022-04-04 08:53 | EKG ---
Test Date: 2022-04-03 Test Time: 10:46:13 Women'S Soccer Coach: GLEN MEASUREMENT RESULTS: Intervals: Rate: 77 CO: 170 QRSD: 108 QT: 360 QTc: 407 [place]: P: 59 CO: 170 QRS: -38 T: -3 INTERPRETIVE STATEMENTS: Normal sinus rhythm Left axis deviation Abnormal ECG Compared to ECG 07/28/2012 13:11:26 Left-axis deviation now present Sinus bradycardia no longer present Ventricular premature complex(es) no longer present Electronically Signed On 04-04-22 08:47:21 CDT by Chad Gomez
--- NOTE | 2022-04-05 09:26 | ER ---
Nurse's Notes [facility] Name: Rupert Riley Age: 56 yrs Sex: Male : 1965 Arrival Date: 04/03/2022 Time: 10:21 Bed 14 Private MD: Diagnosis: Hypertension Presentation: 04/03 10:22 Chief complaint: Patient states: pt presented to ed reporting high blood pressure x christine 3weeks since pt started taking testosterone injection from a from x4 injection over 3 weeks. pt feels like the injection is causing high blood pressure. Coronavirus screen: Vaccine status: Patient reports being unvaccinated. Ebola Screen: Patient denies travel to an Ebola-affected area in the 21 days before illness onset. Initial Sepsis Screen: Does the patient meet any 2 criteria? No. Patient's initial sepsis screen is negative. Does the patient have a suspected source of infection? No. Patient's initial sepsis screen is negative. Risk Assessment: Do you want to hurt yourself or someone else? Patient reports no desire to harm self or others. Onset of symptoms was March 11, 2022. 10:22 Method Of Arrival: Ambulatory christine 10:22 Acuity: MAMTA 3 christine Triage Assessment: 10:28 General: Appears in no apparent distress. comfortable, Behavior is cooperative, bp appropriate for age, anxious. Pain: Denies pain. EENT: No deficits noted. Neuro: No deficits noted. Cardiovascular: Rhythm is sinus rhythm. Respiratory: No deficits noted. GI: No signs and/or symptoms were reported involving the gastrointestinal system. : No signs and/or symptoms were reported regarding the genitourinary system. Derm: No deficits noted. Musculoskeletal: No deficits noted. Historical: - Allergies: 10:25 No Known Allergies; christine - Home Meds: 10:25 benazepril 5 mg oral tab once daily [Active]; warfarin 5 mg Oral tab 1 tab once daily christine [Active]; - PMHx: 10:27 dvt; christine - Immunization history:: Adult Immunizations up to date. - Social history:: Smoking status: Patient denies any tobacco usage or history of. Screenin:34 Abuse screen: Denies threats or abuse. Denies injuries from another. Nutritional bp screening: No deficits noted. Tuberculosis screening: No symptoms or risk factors identified. Fall Risk None identified. Assessment: 10:34 General: SEE TRIAGE NOTE. bp 12:19 Reassessment: Patient appears in no apparent distress at this time. No changes from bp previously documented assessment. 13:15 Reassessment: PT D/C HOME AMBULATORY WITH FAMILY, DX WITH HTN. bp Vital Signs: 10:22 BP 160 / 105; Pulse 78; Resp 97; Temp 97.9; Pulse Ox 97% ; Weight 120.2 kg; Height 6 christine ft. 2 in. (187.96 cm); 10:48 BP 160 / 95; Pulse 72; Resp 16; Pulse Ox 98% ; bp 12:18 BP 148 / 100; Pulse 80; Resp 16; Pulse Ox 97% ; bp 13:15 BP 151 / 92; Pulse 75; Resp 16; Pulse Ox 97% ; bp 10:22 Body Mass Index 34.02 (120.20 kg, 187.96 cm) christine ED Course: 10:21 Patient arrived in ED. am2 10:25 Triage completed. christine 10:28 Blas Maldonado, KRISTOPHER is Primary Nurse. bp 10:29 Yung Balderas PA is PHCP. [facility] 10:29 Fortino Cheung MD is Attending Physician. [facility] 10:34 Arm band placed on. bp 10:34 Patient has correct armband on for positive identification. Bed in low position. Call bp light in reach. Side rails up X2. Adult w/ patient. 10:45 Inserted saline lock: 22 gauge in right wrist, using aseptic technique. bp 13:17 No provider procedures requiring assistance completed. IV discontinued, intact, bp bleeding controlled, No redness/swelling at site. Pressure dressing applied. Administered Medications: 10:50 Drug: hydrALAZINE 5 mg Route: IVP; Site: right wrist; bp 13:20 Follow up: Response: No adverse reaction bp Medication: 10:34 VIS not applicable for this client. bp Outcome: 12:42 Discharge ordered by . jmdave 13:17 Discharged to home ambulatory, with family. bp 13:17 Condition: stable 13:17 Discharge instructions given to patient, Instructed on discharge instructions, follow up and referral plans. medication usage, Demonstrated understanding of instructions, follow-up care, medications, Prescriptions given X 1. 13:20 Patient left the ED. bp Signatures: Yung Balderas PA PA Edith Juarez am2 Blas Maldonado, RN RN bp Au-StagerSamira RN RN christine Corrections: (The following items were deleted from the chart) 10: PMHx: DVT; christine christine 10: PMHx: Hypertension; christine christine 10:25 PMHx: impaired kidney function; christine christine
--- NOTE | 2022-04-05 09:26 | EDPHYS ---
Physician Documentation [facility] Name: Rupert Riley Age: 56 yrs Sex: Male : 1965 Arrival Date: 04/03/2022 Time: 10:21 Bed 14 Private MD: ED Physician Fortino Cheung HPI: 04/03 10:30 This 56 yrs old Male presents to ER via Ambulatory with complaints of High Blood jmm Pressure. 10:30 Onset: The symptoms/episode began/occurred gradually. Modifying factors: The symptoms jmm are aggravated by. Is a 56-year-old male with a history of DVT, hypertension that presents emerged part with complaints of elevated blood pressure which has been ongoing for approximately 3 weeks. Patient states he normally takes 5 mg of enalapril but states having to take 5 of those pills earlier today to help reduce his blood pressure. Denies chest pain, shortness of breath.. Historical: - Allergies: 10:25 No Known Allergies; christine - Home Meds: 10:25 benazepril 5 mg oral tab once daily [Active]; warfarin 5 mg Oral tab 1 tab once daily christine [Active]; - PMHx: 10:27 dvt; christine - Immunization history:: Adult Immunizations up to date. - Social history:: Smoking status: Patient denies any tobacco usage or history of. ROS: 10:30 Constitutional: Negative for fever, chills, and weight loss, Cardiovascular: Negative jmm for chest pain, palpitations, and edema, Respiratory: Negative for shortness of breath, cough, wheezing, and pleuritic chest pain, Abdomen/GI: Negative for abdominal pain, nausea, vomiting, diarrhea, and constipation. 10:30 All other systems are negative. Exam: 10:30 Constitutional: This is a well developed, well nourished patient who is awake, alert, jmm and in no acute distress. Head/Face: atraumatic. Eyes: EOMI, no conjunctival erythema appreciated ENT: Moist Mucus Membranes Neck: Trachea midline, Supple Chest/axilla: Normal chest wall appearance and motion. Cardiovascular: Regular rate and rhythm. No edema appreciated Respiratory: Normal respirations, no respiratory distress appreciated Abdomen/GI: Non distended Back: Normal ROM Skin: General appearance color normal MS/ Extremity: Moves all extremities, no obvious deformities appreciated, no edema noted to the lower extremities Neuro: Awake and alert Psych: Behavior is normal, Mood is normal, Patient is cooperative and pleasant 11:10 ECG was reviewed by the Attending Physician. [facility] Vital Signs: 10:22 BP 160 / 105; Pulse 78; Resp 97; Temp 97.9; Pulse Ox 97% ; Weight 120.2 kg; Height 6 christine ft. 2 in. (187.96 cm); 10:48 BP 160 / 95; Pulse 72; Resp 16; Pulse Ox 98% ; bp 12:18 BP 148 / 100; Pulse 80; Resp 16; Pulse Ox 97% ; bp 13:15 BP 151 / 92; Pulse 75; Resp 16; Pulse Ox 97% ; bp 10:22 Body Mass Index 34.02 (120.20 kg, 187.96 cm) christine MDM: 10:30 Patient medically screened. [facility] 12:41 Data reviewed: vital signs, nurses notes. Counseling: I had a detailed discussion with [facility] the patient and/or guardian regarding: the historical points, exam findings, and any diagnostic results supporting the discharge/admit diagnosis, lab results, the need for outpatient follow up, to return to the emergency department if symptoms worsen or persist or if there are any questions or concerns that arise at home. ED course: Labs discussed with the patient along with the need for further evaluation by cardiology due to elevated INR. Creatinine appears consistent with previous labs.. 04/03 10:38 Order name: CBC with Diff; Complete Time: 11:04 [facility] 04/03 10:38 Order name: BMP; Complete Time: 11: [facility] 04/03 10:38 Order name: Saline Lock; Complete Time: 10:47 [facility] 04/03 10:38 Order name: Troponin High Sensitivity; Complete Time: 11: [facility] 04/03 10:38 Order name: PT-INR; Complete Time: 11:04 [facility] 04/03 10:38 Order name: EKG - Nurse/Tech; Complete Time: 10:47 [facility] EC:10 Rate is 77 beats/min. Rhythm is regular. Left axis deviation noted. MA interval is [facility] normal. QRS interval is normal. QT interval is normal. No Q waves. T waves are Normal. No ST changes noted. Reviewed by me. Administered Medications: 10:50 Drug: hydrALAZINE 5 mg Route: IVP; Site: right wrist; bp 13:20 Follow up: Response: No adverse reaction bp Disposition: 16:15 Co-signature as Attending Physician, Fortino Cheung MD. rn Disposition Summary: 04/03/22 12:42 Discharge Ordered Location: Home [facility] Condition: Stable [facility] Diagnosis - Hypertension [facility] Followup: [facility] - With: Private Physician - When: 2 - 3 days - Reason: Recheck today's complaints, Continuance of care, Re-evaluation by your physician Discharge Instructions: - Discharge Summary Sheet [facility] - Hypertension, Adult [facility] Forms: - Medication Reconciliation Form [facility] - Thank You Letter [facility] - Antibiotic Education [facility] - Prescription Opioid Use [facility] Prescriptions: - Norvasc 5 mg Oral Tablet - take 1 tablet by ORAL route once daily; 20 tablet; Refills: 0, Product [facility] Selection Permitted Signatures: Dispatcher [employer] Yung Valera PA PA jmm Nieto, Roman, MD MD rn Blas Maldonado RN RN bp Au-StagerSamira RN RN christine Corrections: (The following items were deleted from the chart) 10:27 10:25 PMHx: DVT; christine christine 10:27 10:25 PMHx: Hypertension; christine christine 10:27 10:25 PMHx: impaired kidney function; christine christine
== END 2022-04-03 13:20 | disposition home or self-care (01) ==
LOC: ER 10:15
DX: I10 Essential (primary) hypertension (principal); Z86.718 Personal history of other venous thrombosis and embolism; Z79.01 Long term (current) use of anticoagulants
CPT/HCPCS: 93005; 85025; 80048; 36415; 85610; 84484; 96374; 99284; J0360

== ENCOUNTER 2022-04-04 02:25 | Emergency (ER) | payer OTHER ==
[2022-04-04] MEDS ORDERED: HYDRALAZINE HCL 20 MG/ML VIAL ONE (03:28)
[2022-04-04] MEDS ORDERED: LORAZEPAM 1 MG TABLET ONE (03:29)
[2022-04-04 03:34] LABS: Absolute Lymphocytes (CBC) 1.2 K/uL (0.7-4.9); Hematocrit 50.8 % (39.6-49.0); Lymphocytes % 18.2 % (15.3-44.8); MPV 7.4 fL (7.6-11.3); RBC Red Blood Cell Count 5.35 M/uL (4.33-5.43)
[2022-04-04 03:50] LABS: Potassium 4.7 mmol/L (3.5-5.1); Troponin High Sensitivity 49.6 pg/mL (<58.9)
[2022-04-04 04:40] LABS: Thyroid Stimulating Hormone 3.65 uIU/mL (0.360-3.740)
[2022-04-04 06:21] VITALS: BP 144/91; O2SAT 98
--- NOTE | 2022-04-04 08:47 | EKG ---
Test Date: 2022-04-04 Test Time: 03:10:26 Rug Layer: GIRMA MEASUREMENT RESULTS: Intervals: Rate: 79 HI: 168 QRSD: 112 QT: 358 QTc: 410 [place]: P: 55 HI: 168 QRS: -34 T: 9 INTERPRETIVE STATEMENTS: Normal sinus rhythm Left axis deviation Abnormal ECG Compared to ECG 04/03/2022 10:46:13 No significant changes Electronically Signed On 04-04-22 08:46:23 CDT by Chad Gomez
--- OUTSIDE RECORDS SUMMARY | 2022-04-04 11:27 | XMS REPORT | Continuity of Care Document ---
:1965 Author Organization [facility] t Address [address] [place] [address] Care Team Providers Name Role Phone Servando Lopes MD Primary Care Physician HOLLY MEJIA Attending Clinician Unavailable Holly Mejia MD Attending Clinician Radiology Attending Clinician Unavailable RADIOLOGY Attending Clinician Unavailable PASTOR JOHANSEN Attending Clinician Unavailable JUSTIN TORRES Attending Clinician Unavailable Naty Hampton Attending Clinician Doctor Unassigned, [place] Attending Clinician Unavailable , [facility] Lab Attending Clinician Unavailable Awais Jean Baptiste MD Attending Clinician , [facility] Surg Spec Procedure Attending Clinician Unavailable KAE QUEVEDO Attending Clinician Unavailable MARCIAL HOUGH Attending Clinician Unavailable Payers Payer Name Policy Type Policy Number Effective Date Expiration Date S rocio [employer] 90 [id number] 2021 DEGREE BENEFIT 00:00:00 CIGNA-CIGNA 2 [id number] 2021 [place]-ALE[place]/PPO 00:00:00 HEALTHSMART-90 2 [id number] 2021 DEGREE BENEFIT 00:00:00 Problems Condition Condition Condition Status Onset Resolution Last Treating Co mments Source Name Details Category Date Date Treatment Clinician Date Cardiomyop Cardiomyop Disease Active U nivers athy, athy, 4-25 ity of [place] 00 [place] Primary Primary Disease Active Univers hypertensi hypertensi 4-25 it y of on on 00:00: [place] [id number] Medical Branch Deep vein Deep vein Disease Active Uni vers thrombosis thrombosis 5-05 it y of (DVT) of (DVT) of 00:00: [place] proximal proximal 00 Medica l lower lower Branch extremity, extremity, unspecifie unspecifie d d chronicity chronicity , , unspecifie unspecifie d d laterality laterality halfway halfway Disease Active Uni vers (current) (current) 5-05 ity of use of use of 00:00: [place] anticoagul anticoagul 00 Me dical ants ants Branch Obesity Obesity Disease Active Univers (BMI (BMI 5-05 ity of 30-39.9) 30-39.9) 00:00: [place] 00 Medical Branch Gross Gross Disease Active Methodi hematuria hematuria 8-10 st 00:00: Hospita 00 l BPH with BPH with Disease Active Metho di urinary urinary 8-10 st obstructio obstructio 00:00: Ho spita n n 00 l History of History of Disease Active M ethodi tobacco tobacco 8-10 st abuse abuse 00:00: Hospita 00 l CKD CKD Disease Active Overview: Univer s (chronic (chronic Formattin ity of kidney kidney g of this [place] disease) disease) note Medica l stage 3, stage 3, might be Bran ch GFR 30-59 GFR 30-59 different ml/min ml/min from the original. unsure of cause Allergies, Adverse Reactions, Alerts Allergy Allergy Status Severity Reaction(s) Onset Inactive Treating Comm ents Source Name Type Date Date Clinician NO KNOWN Drug Active Univers ALLERGIE Class ity of [facility] Social History Social Habit Start Date Stop Date Quantity Comments Source History SDMS University o f Alcohol Frequency [place] M edical Branch History [facility] University o f Alcohol Std Drinks [place] [facility] [place] History [facility] University o f Alcohol Binge [place] Medic al Branch Exposure to 2022-03-07 2022-03-17 Not sure University of SARS-CoV-2 (event) 00:00:00 08:57:00 [facility] Alcohol intake 2020-04-12 2020-04-12 3 /d Yarsanism 00:00:00 00:00:00 Hospital Cigarettes smoked 2020-04-05 2020-04-[address] current [facility] - Reported Tobacco use and 2017-10-03 2017-10-03 User of Universit y of exposure 00:00:00 00:00:00 smokeless [facility] tobacco [place] Alcohol Comment 2017-10-03 2017-10-03 20 drinks a week Uni versity of 00:00:00 00:00:00 [facility] History of tobacco 2005-04-05 Cigarette Smoker Yarsanism use 00:00:00 Hospital Sex [birth year] At [birth year] Universit y of 00:00:00 00:00:00 [facility] Smoking Status Start Date Stop Date Source Ex-smoker 2017-10-03 00:00:00 2017-10-03 00:00:00 [facility] [place] [facility] Medications Ordered Filled Start Stop Current Ordering Indication Dosage Frequency Signature Comments Components Source Medication Medication Date Date Medication? Clinician (SIG) Name Name hydrALAZINE Yes 25mg Take 1 Univ ers 25 mg 8-02 tablet by ity of tablet 00:00: mouth in [place] 00 the Medical morning Branch and 1 tablet at noon and 1 tablet in the evening. warfarin 5 Yes [id number] 5mg Take 1 Univers mg tablet 7-28 9104 tablet by ity o f 00:00: mouth [place] 00 every Medical evening. Branch warfarin 5 Yes [id number] 5mg Take 1 Univers mg tablet 7-28 9104 tablet by ity o f 00:00: mouth [place] 00 every Medical evening. Branch warfarin 5 Yes [id number] 5mg Take 1 Univers mg tablet 6-16 9104 tablet by ity o f 00:00: mouth [place] 00 every Medical evening. Branch warfarin 5 2021-0 Yes [id number] 5mg Take 1 Univers mg tablet 6-16 9104 tablet by ity o f 00:00: mouth [place] 00 every Medical evening. Branch warfarin 5 Yes [id number] 5mg Take 1 Univers mg tablet 6-16 9104 tablet by ity o f 00:00: mouth [place] 00 every Medical evening. Branch warfarin 5 0 Yes [id number] 5mg Take 1 Univers mg tablet 6-16 9104 tablet by ity o f 00:00: mouth [place] 00 every Medical evening. Branch warfarin 5 0 Yes [id number] 5mg Take 1 Univers mg tablet 6-16 9104 tablet by ity o f 00:00: mouth [place] 00 every Medical evening. Branch warfarin 5 2021-0 2021- No [id number] 5mg Take 1 Univers mg tablet 6-16 -28 9104 tablet by ity of 00:00: 00:00 mouth [place] 00 :00 every Medical evening. Branch warfarin 5 0 Yes [id number] 5mg Take 1 Univers mg tablet 5-16 9104 tablet by ity o f 00:00: mouth [place] 00 every Medical evening. Branch warfarin 5 Yes [id number] 5mg Take 1 Univers mg tablet 5-16 9104 tablet by ity o f 00:00: mouth [place] 00 every Medical evening. Branch warfarin 5 2021-0 2021- No [id number] 5mg Take 1 Univers mg tablet 5-16 -16 9104 tablet by ity of 00:00: 00:00 mouth [place] 00 :00 every Medical evening. Branch warfarin 5 0 Yes [id number] 5mg Take 1 Univers mg tablet 4-13 9104 tablet by ity o f 00:00: mouth [place] 00 every Medical evening. Branch warfarin 5 0 2021- No [id number] 5mg Take 1 Univers mg tablet 4-13 05-16 9104 tablet by ity of 00:00: 00:00 mouth [place] 00 :00 every Medical evening. Branch benazepriL 2021-0 Yes [id number] 5mg Take 1 U nivers 5 mg tablet 1-14 tablet by ity of 00:00: mouth [place] 00 daily. Medical Branch benazepriL 2021-0 Yes [id number] 5mg Take 1 U nivers 5 mg tablet 1-14 tablet by ity of 00:00: mouth [place] 00 daily. Medical Branch benazepriL 2021-0 Yes [id number] 5mg Take 1 U nivers 5 mg tablet 1-14 tablet by ity of 00:00: mouth [place] 00 daily. Medical Branch benazepriL 2021-0 Yes [id number] 5mg Take 1 U nivers 5 mg tablet 1-14 tablet by ity of 00:00: mouth [place] 00 daily. Medical Branch benazepriL 0 Yes [id number] 5mg Take 1 U nivers 5 mg tablet 1-14 tablet by ity of 00:00: mouth [place] 00 daily. Medical Branch benazepriL 0 Yes [id number] 5mg Take 1 U nivers 5 mg tablet 1-14 tablet by ity of 00:00: mouth [place] 00 daily. Medical Branch benazepriL 0 Yes [id number] 5mg Take 1 U nivers 5 mg tablet 1-14 tablet by ity of 00:00: mouth [place] 00 daily. Medical Branch benazepriL 0 Yes [id number] 5mg Take 1 U nivers 5 mg tablet 1-14 tablet by ity of 00:00: mouth [place] 00 daily. Medical Branch benazepriL 0 Yes [id number] 5mg Take 1 U nivers 5 mg tablet 1-14 tablet by ity of 00:00: mouth [place] 00 daily. Medical Branch benazepriL 0 Yes [id number] 5mg Take 1 U nivers 5 mg tablet 1-14 tablet by ity of 00:00: mouth [place] 00 daily. Medical Branch atorvastati 2020-09- No [id number] 20mg Take 1 Univers n 20 mg 0-25 04-25 tablet by ity of tablet 00:00: 00:00 mouth [place] 00 :00 daily. Medical Branch metoprolol 2020-09- No [id number] 12.5mg Take 0.5 Univers succinate 0-25 04-25 tablets by ity of XL 25 mg 24 00:00: 00:00 [place] hr tablet 00 :00 daily. Medical Branch calcitrioL 0 Yes [id number] .25ug Take 1 Univers 0.25 mcg 7-15 capsule by ity o f capsule 00:00: mouth [place] 00 every Medical other day. Branch calcitrioL 0 Yes [id number] .25ug Take 1 Univers 0.25 mcg 7-15 capsule by ity o f capsule 00:00: mouth [place] 00 every Medical other day. Branch calcitrioL 0 Yes [id number] .25ug Take 1 Univers 0.25 mcg 7-15 capsule by ity o f capsule 00:00: mouth [place] 00 every Medical other day. Branch calcitrioL 2020-0 Yes [id number] .25ug Take 1 Univers 0.25 mcg 7-15 capsule by ity o f capsule 00:00: mouth [place] 00 every Medical other day. Branch calcitrioL 2020-0 Yes [id number] .25ug Take 1 Univers 0.25 mcg 7-15 capsule by ity o f capsule 00:00: mouth [place] 00 every Medical other day. Branch calcitrioL 2020-0 Yes [id number] .25ug Take 1 Univers 0.25 mcg 7-15 capsule by ity o f capsule 00:00: mouth [place] 00 every Medical other day. Branch calcitrioL 2020-0 Yes [id number] .25ug Take 1 Univers 0.25 mcg 7-15 capsule by ity o f capsule 00:00: mouth [place] 00 every Medical other day. Branch calcitrioL 2020-0 Yes [id number] .25ug Take 1 Univers 0.25 mcg 7-15 capsule by ity o f capsule 00:00: mouth [place] 00 every Medical other day. Branch calcitrioL 2020-0 Yes [id number] .25ug Take 1 Univers 0.25 mcg 7-15 capsule by ity o f capsule 00:00: mouth [place] 00 every Medical other day. Branch calcitrioL 2020-0 Yes [id number] .25ug Take 1 Univers 0.25 mcg 7-15 capsule by ity o f capsule 00:00: mouth [place] 00 every Medical other day. Branch allopurinoL 2020-1 Yes 100mg Take 1 Uni vers 100 mg 0-23 tablet by ity of tablet 00:00: mouth [place] 00 daily. Medical Branch allopurinoL 2020-1 Yes 100mg Take 1 Uni vers 100 mg 0-23 tablet by ity of tablet 00:00: mouth [place] 00 daily. Medical Branch allopurinoL 2020-1 Yes 100mg Take 1 Uni vers 100 mg 0-23 tablet by ity of tablet 00:00: mouth [place] 00 daily. Medical Branch allopurinoL 2020-1 Yes 100mg Take 1 Uni vers 100 mg 0-23 tablet by ity of tablet 00:00: mouth [place] 00 daily. Medical Branch allopurinoL 2020-1 Yes 100mg Take 1 Uni vers 100 mg 0-23 tablet by ity of tablet 00:00: mouth [place] 00 daily. Medical Branch allopurinoL 2020-1 Yes 100mg Take 1 Uni vers 100 mg 0-23 tablet by ity of tablet 00:00: mouth [place] 00 daily. Medical Branch allopurinoL 2020-1 Yes 100mg Take 1 Uni vers 100 mg 0-23 tablet by ity of tablet 00:00: mouth [place] 00 daily. Medical Branch allopurinoL 2020-1 Yes 100mg Take 1 Uni vers 100 mg 0-23 tablet by ity of tablet 00:00: mouth [place] 00 daily. Medical Branch allopurinoL 2020-1 Yes 100mg Take 1 Uni vers 100 mg 0-23 tablet by ity of tablet 00:00: mouth [place] 00 daily. [facility] Branch allopurinoL 2020-1 Yes 100mg Take 1 Uni vers 100 mg 0-23 tablet by ity of tablet 00:00: mouth [place] 00 daily. Medical Branch SODIUM 2020-0 Yes [id number] TAKE 2 Unive rs BICARBONATE 8-11 TABLETS BY it y of 650 mg 00:00: MOUTH [place] tablet 00 TWICE A Medical DAY Branch SODIUM 2020-0 Yes [id number] TAKE 2 Unive rs BICARBONATE 8-11 TABLETS BY it y of 650 mg 00:00: MOUTH [place] tablet 00 TWICE A Medical DAY Branch SODIUM 2020-0 Yes [id number] TAKE 2 Unive rs BICARBONATE 8-11 TABLETS BY it y of 650 mg 00:00: MOUTH [place] tablet 00 TWICE A Medical DAY Branch SODIUM 2020-0 Yes [id number] TAKE 2 Unive rs BICARBONATE 8-11 TABLETS BY it y of 650 mg 00:00: MOUTH [place] tablet 00 TWICE A Medical DAY Branch SODIUM 2020-0 Yes [id number] TAKE 2 Unive rs BICARBONATE 8-11 TABLETS BY it y of 650 mg 00:00: MOUTH [place] tablet 00 TWICE A Medical DAY Branch SODIUM 2020-0 Yes [id number] TAKE 2 Unive rs BICARBONATE 8-11 TABLETS BY it y of 650 mg 00:00: MOUTH [place] tablet 00 TWICE A Medical DAY Branch SODIUM 2020-0 Yes [id number] TAKE 2 Unive rs BICARBONATE 8-11 TABLETS BY it y of 650 mg 00:00: MOUTH [place] tablet 00 TWICE A Medical DAY Branch SODIUM 2020-0 Yes [id number] TAKE 2 Unive rs BICARBONATE 8-11 TABLETS BY it y of 650 mg 00:00: MOUTH [place] tablet 00 TWICE A Medical DAY Branch SODIUM 2020-0 Yes [id number] TAKE 2 Unive rs BICARBONATE 8-11 TABLETS BY it y of 650 mg 00:00: MOUTH [place] tablet 00 TWICE A Medical DAY Branch SODIUM 2019-0 Yes [id number] TAKE 2 Unive rs BICARBONATE 8-11 TABLETS BY it y of 650 mg 00:00: MOUTH [place] tablet 00 TWICE A Medical DAY Branch tamsulosin Yes TAKE 1 Metho di (FLOMAX) 8-[address] 0.4 mg 00:00: MOUTH Hospita capsule 00 EVERY DAY l benazepriL Yes 20mg QD Take 20 mg M ethodi (LOTENSIN) [address] 20 MG 17:20: daily. Hospita tablet 35 l warfarin Yes 5mg QD Take 5 mg Meth janak (COUMADIN) [address] 5 MG tablet 12:33: daily. Hosp trinh 33 Take 1 l tablet (5mg) by mouth daily for 30 days. ondansetron Yes Method i (ZOFRAN) 4 7-31 st MG tablet 00:00: Hospita 00 l Immunizations Ordered Filled Immunization Date Status Comments [facility] e Immunization Name Name Influenza Virus 2017-10-03 Completed Universit y of Vaccine Quad IM 3+ 00:00:00 [facility] Influenza Virus 2017-10-03 Completed Universit y of Vaccine Quad IM 3+ 00:00:00 [facility] Influenza Virus 2017-10-03 Completed Universit y of Vaccine Quad IM 3+ 00:00:00 [facility] Influenza Virus 2017-10-03 Completed Universit y of Vaccine Quad IM 3+ 00:00:00 [facility] Influenza Virus 2017-10-03 Completed Universit y of Vaccine Quad IM 3+ 00:00:00 [facility] Influenza Virus 2017-10-03 Completed Universit y of Vaccine Quad IM 3+ 00:00:00 [facility] Influenza Virus 2017-10-03 Completed Universit y of Vaccine Quad IM 3+ 00:00:00 [facility] Influenza Virus 2017-10-03 Completed Universit y of Vaccine Quad IM 3+ 00:00:00 [facility] Influenza Virus 2017-10-03 Completed Universit y of Vaccine Quad IM 3+ 00:00:00 [facility] Influenza Virus 2017-10-03 Completed Universit y of Vaccine Quad IM 3+ 00:00:00 [facility] Vital Signs Vital Name Observation Time Observation Value Comments Source Systolic blood 2021-12-26 20:51:00 126 mm[Hg] Univer sity of pressure [facility] Diastolic blood 2021-12-26 20:51:00 83 mm[Hg] Unive rsity [facility] Heart rate 2021-12-26 20:51:00 78 /min [facility] Respiratory rate 2021-12-26 20:51:00 17 /min [facility] 2021-12-26 20:51:00 119.948 kg [facility] BMI 2021-12-26 20:51:00 33.95 kg/m2 [facility] Oxygen saturation in 2021-12-26 20:51:00 95 /min [facility] Arterial blood by [facility] [place] [facility] Pulse oximetry Branch Procedures Procedure Date / Time Performed Performing Clinician Henry IYER HEAD NECK 2022-03-17 15:13:14 Pauline Julio César Phelan o [facility] XR CHEST 2 VW 2022-03-17 14:16:00 Requisition, Paper [facility] ASSIGNMENT OF BENEFITS 2022-03-17 14:07:05 Doctor Unassigned, No [facility] Plan of Care Planned Activity Planned Date Details Comments Source Future Scheduled 2021-09-28 COVID-19 VACCINE (1) Met [facility] Test 12:52:41 [code = COVID-19 VACCINE (1)] Future Scheduled 2021-09-28 Hepatitis C screening [facility] Test 12:52:41 (procedure) [code = 921238646] Future Scheduled 2021-09-28 COLONOSCOPY SCREENING [facility] Hospital Test 12:52:41 [code = COLONOSCOPY SCREENING] Future Scheduled 2021-09-28 SHINGLES VACCINES [facility] Test 12:52:41 (#1) [code = SHINGLES VACCINES (#1)] Future Scheduled 2021-09-28 INFLUENZA VACCINE [facility] Test 12:52:41 [code = INFLUENZA VACCINE] Encounters Start End Encounter Admission Attending Care Care Encounter Source Date/Time Date/Time Type Type Clinicians Facility Department ID 2023-01-08 2023-01-08 Outpatient Anil MEJIA [facility] [id number] Univers 15:40:00 15:40:00 HOLLY castro o f [facility] 2022-05-24 2022-05-24 Outpatient R ROBERTO, [facility] [id number] Univers 11:00:00 11:00:00 MIANKANG [id number] ity o f [facility] 2022-04-03 2022-04-03 [facility] [id number] Univers 00:00:00 00:00:00 Qiangjun [place] [id number] ity [place] [id number] N[place] dicwi NAL [address] [place] [address] 2022-03-29 2022-03-29 [facility] 1.2.840.114 [id number] Univers 00:00:00 00:00:00 Qiangjun [place] [id number] ity [place] [id number] Nj dicwi NAL [address] [place] [address] 2022-03-17 2022-03-17 [facility] Radiology [facility] [id number] Univers 09:06:02 23:59:00 Encounter [place] [id number] ity [place] [id number] [address] 2022-03-17 2022-03-17 Outpatient R RADIOLOGY [facility] [id number] Univers 09:15:00 09:15:00 [id number] ity of [facility] 2022-03-17 2022-03-17 Outpatient R RADIOLOGY [facility] [id number] Univers 09:01:45 09:05:00 ity of [facility] 2022-03-17 2022-03-17 Hospital Radiology [facility] [id number] Univers 09:00:00 09:05:00 Encounter [place] 350.1.13.10 [place] [id number] [facility] [address] [place] 2022-03-17 2022-03-17 Hospital Radiology [facility] 1.2.840.114 [id number] Univers 08:58:06 08:59:00 Encounter [place] 350.1.13.10 [place]y [place] [id number] [facility] [address] [place] 2022-03-01 2022-03-01 Refill [facility] 1.2.840.114 [id number] Univers 00:00:00 00:00:00 Qiajose r [place] 350.1.13.10 [place] [id number] [address] 2022-02-15 2022-02-15 Refill [facility] 1.2.840.114 [id number] Univers 00:00:00 00:00:00 Qiajose r [place] 350.1.13.10 [place] [id number] [address] 2022-02-07 2022-02-07 [facility] [id number] Univers 16:00:00 16:00:00 HOLLY [id number] ity o f [facility] 2022-01-24 2022-01-24 Telephone [facility] [id number] Univers 00:00:00 00:00:00 Holly SANTAMARIA 350.1.13.10 [place] [id number] [address] 2022-01-10 2022-01-10 Refill [facility] 1.2.840.114 [id number] Univers 00:00:00 00:00:00 Holly [place] 350.1.13.10 [place] [id number] [address] 2021-12-26 2021-12-26 Office [facility] 1.2.840.114 [id number] Univers 15:40:00 16:12:28 Visit Holly SANTAMARIA 350.1.13.10 ity of [place] 4.2.7.2.686 Alannah redd PROFESSIO [id number] Nj dical [address] 2021-12-26 2021-12-26 Outpatient Anil MEJIA [facility] [id number] Univers 15:40:00 16:12:28 HOLLY ity o f [facility] 2021-11-25 2021-11-25 Outpatient LIBBY JOHANSEN [id number] Libby 16:30:00 16:30:00 PASTOR Seybol amilcar 2021-11-25 2021-11-25 Outpatient LIBBY JOHANSEN [id number] Lib[place] 16:30:00 16:30:00 PASTOR Seybol amilcar 2021-05-30 2021-05-30 Outpatient LIBBY TORRES [id number] Libby 16:30:00 16:30:00 JUSTIN fitzgerald 2020-10-15 2020-10-15 [facility]phone [facility] [id number] 00:00:00 00:00:00 Holly Santamaria 350.1.13.10 [place] 4.2.7.2.686 Professio [id number] [address] 2020-09-27 2020-09-27 [facility]ill [facility] 1.2.840.114 [id number] 00:00:00 00:00:00 Holly Santamaria 350.1.13.10 [place] 4.2.7.2.686 Professio [id number] [address] 2020-09-13 2020-09-13 Refill [facility] 1.2.840.114 [id number] 00:00:00 00:00:00 Holly Santamaria 350.1.13.10 [place] 4.2.7.2.686 Professio [id number] [address] 2020-08-17 2020-08-17 Telephone [facility] 1.2.840.114 [id number] 00:00:00 00:00:00 Naty MCKENZIEPEC 350.1.13.10 [place] 4.2.7.2.686 NATALIA [id number] [facility] 2020-08-16 2020-08-16 Telephone [facility] [id number] 00:00:00 00:00:00 Holly Santamaria 350.1.13.10 [place] 4.2.7.2.686 Professio [id number] [facility] 059 [facility] 2020-08-16 2020-08-16 Orders Doctor AYANA 1.2.840.114 [id number] 00:00:00 00:00:00 Only Unassigned, FRANCIS 350.1.13.10 [place] [facility] 4.2.7.2.686 [id number] 2020-08-10 2020-08-10 Refill Doctor [facility] 1.2.840.114 [id number] 00:00:00 00:00:00 Unassigned, MULTISPEC 350.1.13.10 [place] [facility] 4.2.7.2.686 NATALIA [id number] AND CHARISSE [facility] 2020-08-04 2020-08-04 Telephone [facility] 1.2.840.114 [id number] 00:00:00 00:00:00 Naty MULTISPEC 350.1.13.10 [facility] 4.2.7.2.686 NATALIA [id number] AND CHARISSE [facility] 2020-07-28 2020-07-28 Flight Test Data Acquisition Technician 2, Adc Lab [facility] 1.2.840.114 [id number] 14:06:58 14:21:58 Visit Marleny 350.1.13.10 [place] 4.2.7.2.686 Maria R [id number] [facility] 353 [facility] 2020-07-26 2020-07-26 Telephone [facility] 1.2.840.114 [id number] 00:00:00 00:00:00 Naty MULTIS[place] 350.1.13.10 [place] 4.2.7.2.686 NATALIA [id number] AND CHARISSE [facility] 2020-07-20 2020-07-20 Orders Doctor AYANA 1.2.840.114 [id number] 00:00:00 00:00:00 Only Unassigned, FRANCIS 350.1.13.10 [place] [facility] 4.2.7.2.686 [id number] 2020-07-05 2020-07-05 Office Awais Jean Baptiste [facility] 1.2.840.114 [id number] 15:30:00 16:00:00 Visit Rm, Adc Surg Spec Procedure [place] 3 50.1.13.10 [place] 4.2.7.2.686 Profjessica [id number] [address] 2020-04-12 2020-04-12 Outpatient [facility] [id number] [place] 00:00:00 00:00:00 KAE [address] 2020-04-05 2020-04-05 Emergency GIANLUCA, [facility] 064 [id number] [place] 00:00:00 00:00:00 MARCIAL [address] Results This patient has no known results.
--- NOTE | 2022-04-04 21:55 | RAD REPORT ---
EXAM DESCRIPTION: RAD - Chest Single View - 04/04/2022 2:52 am CLINICAL HISTORY: HTN COMPARISON: None. TECHNIQUE: XR CHEST 1 VIEW 04/04/2022 2:37 AM CDT FINDINGS: The heart is enlarged. Lungs are clear without consolidation, atelectasis, mass or edema. There is no pleural effusion. There is no pneumothorax. There are no acute osseous findings. IMPRESSION: Clear lungs. Electronically signed by: Konrad Carter MD 04/04/2022 5:17 AM CDT Due to temporary technical issues with the PACS/Fluency reporting system, reports are being signed by the in house radiologists without review as a courtesy to insure prompt reporting. The interpreting radiologist is fully responsible for the content of the report.
--- NOTE | 2022-04-05 10:00 | EDPHYS ---
Physician Documentation [facility] Name: Rupert Riley Age: 56 yrs Sex: Male : 1965 Arrival Date: 04/04/2022 Time: 02:27 Bed 4 Private MD: ED Physician Riley South HPI: 04/04 03:40 This 56 yrs old Male presents to ER via Ambulatory with complaints of High Blood kdr Pressure. 03:41 Patient presents to the ED this evening stating that he feels like his head is going to kdr pop off. He was seen here earlier in the last 24 hours for poor blood pressure control. At that time he was medicated with hydralazine and and sent out with a prescription for Norvasc. Patient states that when he awoke this evening he was not feeling right and he took 1 or 2 Norvasc without any improvement. He presents now with continued concerns about his blood pressure control. Patient does not appear toxic however he does appear very concerned about his blood pressure control. He is nontoxic-appearing and does not require immediate intervention. Onset: The symptoms/episode began/occurred yesterday. Severity of symptoms: At their worst the symptoms were mild moderate in the emergency department the symptoms are unchanged. The patient has experienced similar episodes in the past, multiple times. The patient has been recently seen by a physician: The patient has been recently seen at the [facility] Emergency Department, today. Historical: - Home Meds: 02:48 benazepril 5 mg Oral tab once daily [Active]; warfarin 5 mg Oral tab 1 tab once daily [Active]; Norvasc 5 mg Oral tab 1 tab once daily [Active]; - PMHx: 02:48 DVT; Kidney Disease Stage 3; Hypertensive disorder; kl - PSHx: 02:48 Appendectomy; kl - Immunization history:: Adult Immunizations not up to date. - Social history:: Smoking status: Patient denies any tobacco usage or history of. Patient uses alcohol, on a daily basis. admits to "couple of beers" a day. ROS: 03:41 Constitutional: Negative for fever, chills, and weight loss, Eyes: Negative for injury, kdr pain, redness, and discharge, ENT: Negative for injury, pain, and discharge, Neck: Negative for injury, pain, and swelling, Cardiovascular: Negative for chest pain, palpitations, and edema, Respiratory: Negative for shortness of breath, cough, wheezing, and pleuritic chest pain, Abdomen/GI: Negative for abdominal pain, nausea, vomiting, diarrhea, and constipation, Back: Negative for injury and pain, : Negative for injury, bleeding, discharge, and swelling, MS/Extremity: Negative for injury and deformity, Skin: Negative for injury, rash, and discoloration, Neuro: Negative for headache, weakness, numbness, tingling, and seizure activity. Allergy/Immunology: Negative for hives, rash, and allergies, Endocrine: Negative for neck swelling, polydipsia, polyuria, polyphagia, and marked weight changes, Hematologic/Lymphatic: Negative for swollen nodes, abnormal bleeding, and unusual bruising. 03:41 Psych: Positive for anxiety, Negative for depression, drug dependence, alcohol dependence, auditory hallucinations, visual hallucinations, homicidal ideation, insomnia, suicide gesture. Exam: 03:53 Constitutional: This is a well developed, well nourished patient who is awake, alert, kdr and in mild distress. Head/Face: Normocephalic, atraumatic. Eyes: Pupils equal round and reactive to light, extra-ocular motions intact. Lids and lashes normal. Conjunctiva and sclera are non-icteric and not injected. Cornea within normal limits. Periorbital areas with no swelling, redness, or edema. Neck: Trachea midline, no thyromegaly or masses palpated, and no cervical lymphadenopathy. Supple, full range of motion without nuchal rigidity, or vertebral point tenderness. No Meningismus. Chest/axilla: Normal chest wall appearance and motion. Nontender with no deformity. No lesions are appreciated. Cardiovascular: Regular rate and rhythm with a normal S1 and S2. No gallops, murmurs, or rubs. Normal PMI, no JVD. No pulse deficits. Respiratory: Lungs have equal breath sounds bilaterally, clear to auscultation and percussion. No rales, rhonchi or wheezes noted. No increased work of breathing, no retractions or nasal flaring. Abdomen/GI: Soft, non-tender, with normal bowel sounds. No distension or tympany. No guarding or rebound. No evidence of tenderness throughout. Back: No spinal tenderness. No costovertebral tenderness. Full range of motion. Skin: Warm, dry with normal turgor. Normal color with no rashes, no lesions, and no evidence of cellulitis. MS/ Extremity: Pulses equal, no cyanosis. Neurovascular intact. Full, normal range of motion. Neuro: Awake and alert, GCS 15, oriented to person, place, time, and situation. Cranial nerves II-XII grossly intact. Motor strength 5/5 in all extremities. Sensory grossly intact. Cerebellar exam normal. Normal gait. Psych: Awake, alert, with orientation to person, place and time. Behavior, mood, and affect are within normal limits. 03:55 ECG was reviewed by the Attending Physician. [facility] Vital Signs: 02:45 BP 165 / 102; Pulse 99; Resp 20; Pulse Ox 96% on R/A; kl 03:35 BP 143 / 92; Pulse 87; Resp 16; Pulse Ox 96% on R/A; lp1 03:59 BP 144 / 91; Pulse 86; Resp 20; Pulse Ox 98% on R/A; Pain 0/10; lp1 MDM: 03:41 Data reviewed: vital signs, nurses notes. Counseling: I had a detailed discussion with kdr the patient and/or guardian regarding: the historical points, exam findings, and any diagnostic results supporting the discharge/admit diagnosis, lab results, radiology results. 03:46 Patient medically screened. [facility] 04/04 02:37 Order name: Basic Metabolic Panel [facility] 04/04 02:37 Order name: CBC with Diff; Complete Time: 03:54 [facility] 04/04 02:37 Order name: Troponin HS [facility] 04/04 04:16 Order name: Thyroid Stimulating Hormone EDIL 04/04 02:37 Order name: XRAY Chest (1 view) [facility] 04/04 02:37 Order name: EKG; Complete Time: 02:39 [facility] 04/04 02:37 Order name: Cardiac monitoring; Complete Time: 03:35 [facility] 04/04 02:37 Order name: EKG - Nurse/Tech; Complete Time: 03:35 [facility] 04/04 02:37 Order name: IV Saline Lock; Complete Time: 03:35 [facility] 04/04 02:37 Order name: Labs collected and sent; Complete Time: 03:35 kdr 04/04 02:37 Order name: O2 Per Protocol; Complete Time: 03:35 [facility] 04/04 02:37 Order name: O2 Sat Monitoring; Complete Time: 03:35 kdr EC:55 Rate is 79 beats/min. Rhythm is regular, Sinus Rhythm with No ectopy. QRS Harlan is kdr Normal. NV interval is normal. QRS interval is normal. QT interval is normal. Clinical impression: NSR w/ Non-specific ST/T Changes. Administered Medications: 03:29 Drug: hydrALAZINE 10 mg Route: IVP; Site: left antecubital; kl 04:30 Follow up: Response: Blood pressure is lowered lp1 03:29 Drug: Ativan (LORazepam) 1 mg Route: PO; kl 04:30 Follow up: Response: Marked relief of symptoms lp1 Disposition Summary: 04/04/22 03:46 Discharge Ordered Location: Home kdr Problem: an ongoing problem kdr Symptoms: have improved kdr Condition: Stable kdr Diagnosis - Hypertensive heart disease without heart failure kdr - Anxiety disorder, unspecified kdr Followup: kdr - With: Private Physician - When: 2 - 3 days - Reason: If symptoms return, Further diagnostic work-up, Recheck today's complaints, Continuance of care, Re-evaluation by your physician Discharge Instructions: - Discharge Summary Sheet kdr - Hypertension, Adult, [id number] kdr - Generalized Anxiety Disorder, Adult kdr Forms: - Medication Reconciliation Form kdr - Thank You Letter kdr Prescriptions: - Ativan 1 mg Oral Tablet - take 1 tablet by ORAL route every 8 hours As needed; 12 tablet; Refills: 0, kdr Product Selection Permitted Signatures: Dispatcher [employer] EDChioma Flores RN RN kl Rittger, Kevin, MD MD kdr Steph Varela RN RN lp1 Corrections: (The following items were deleted from the chart) 04:15 04:12 Thyroid Stimulating Hormone ordered. EDMS EDMS 04:16 04:10 THYROID STIMULAT HORMONE+C.LAB.BRZ ordered. EDMS EDMS
--- NOTE | 2022-04-05 10:00 | ER ---
Nurse's Notes [facility] Name: Rupert Riley Age: 56 yrs Sex: Male : 1965 Arrival Date: 04/04/2022 Time: 02:27 Bed 4 Private MD: Diagnosis: Hypertensive heart disease without heart failure;Anxiety disorder, unspecified Presentation: 04/04 02:45 Chief complaint: Patient states: woke up at 2 am took BP it was 168/110 seen earlier today for hypertension prescribed Norvasc 5 mg pt reports took Norvasc and Lisinopril JEWELRY CONSULTANT also reports feeling anxious. Coronavirus screen: Vaccine status: Patient reports being unvaccinated. Ebola Screen: Patient negative for fever greater than or equal to 101.5 degrees Fahrenheit, and additional compatible Ebola Virus Disease symptoms. Initial Sepsis Screen: Does the patient meet any 2 criteria? No. Patient's initial sepsis screen is negative. Does the patient have a suspected source of infection? No. Patient's initial sepsis screen is negative. Risk Assessment: Do you want to hurt yourself or someone else? Patient reports no desire to harm self or others. Onset of symptoms was April 04, 2022 at 02:00. 02:45 Method Of Arrival: Ambulatory 02:45 Acuity: MAMTA 3 kl Triage Assessment: 02:49 General: Appears in no apparent distress. well developed, well nourished, Behavior is kl anxious. Pain: Denies pain. EENT: No deficits noted. No signs and/or symptoms were reported regarding the EENT system. Neuro: No deficits noted. Aguilar Agitation-Sedation Scale (RASS): 0 - Alert and Calm Level of Consciousness is awake, alert, obeys commands, Oriented to person, place, time, situation. Cardiovascular: Heart tones S1 S2 Rhythm is sinus rhythm. Respiratory: No deficits noted. Airway is patent Trachea midline Respiratory effort is even, unlabored. GI: No deficits noted. No signs and/or symptoms were reported involving the gastrointestinal system. : No deficits noted. No signs and/or symptoms were reported regarding the genitourinary system. Derm: No deficits noted. No signs and/or symptoms reported regarding the dermatologic system. Musculoskeletal: No deficits noted. No signs and/or symptoms reported regarding the musculoskeletal system. Historical: - Home Meds: 02:48 benazepril 5 mg Oral tab once daily [Active]; warfarin 5 mg Oral tab 1 tab once daily kl [Active]; Norvasc 5 mg Oral tab 1 tab once daily [Active]; - PMHx: 02:48 DVT; Kidney Disease Stage 3; Hypertensive disorder; kl - PSHx: 02:48 Appendectomy; kl - Immunization history:: Adult Immunizations not up to date. - Social history:: Smoking status: Patient denies any tobacco usage or history of. Patient uses alcohol, on a daily basis. admits to "couple of beers" a day. Screenin:57 Abuse screen: Denies threats or abuse. Denies injuries from another. Nutritional lp1 screening: No deficits noted. Tuberculosis screening: No symptoms or risk factors identified. Fall Risk None identified. Assessment: 03:09 Reassessment: Verbal order for Hydralazine 10mg IV, Ativan [address] South. lp1 03:30 Reassessment: Patient is alert, oriented x 3, equal unlabored respirations, skin lp1 warm/dry/pink. Voices concern of heart attack and uncontrolled high blood pressure. General: Behavior is anxious. 04:30 Reassessment: Patient appears in no apparent distress at this time. Patient is alert, lp1 oriented x 3, equal unlabored respirations, skin warm/dry/pink. Vital Signs: 02:45 BP 165 / 102; Pulse 99; Resp 20; Pulse Ox 96% on R/A; kl 03:35 BP 143 / 92; Pulse 87; Resp 16; Pulse Ox 96% on R/A; lp1 03:59 BP 144 / 91; Pulse 86; Resp 20; Pulse Ox 98% on R/A; Pain 0/10; lp1 ED Course: 02:27 Patient arrived in ED. bp1 02:37 Riley South MD is Attending Physician. kdr 02:48 Triage completed. kl 02:54 XRAY Chest (1 view) In Process Unspecified. EDMS 03:09 Patient has correct armband on for positive identification. Client placed on continuous lp1 cardiac and pulse oximetry monitoring. NIBP monitoring applied. 03:56 Steph Varela, KRISTOPHER is Primary Nurse. lp1 03:57 Arm band placed on. lp1 03:57 No provider procedures requiring assistance completed. lp1 04:29 IV discontinued, No redness/swelling at site. Pressure dressing applied. lp1 Administered Medications: 03:29 Drug: hydrALAZINE 10 mg Route: IVP; Site: left antecubital; 04:30 Follow up: Response: Blood pressure is lowered lp1 03:29 Drug: Ativan (LORazepam) 1 mg Route: PO; 04:30 Follow up: Response: Marked relief of symptoms lp1 Medication: 03:57 VIS not applicable for this client. lp1 Outcome: 03:46 Discharge ordered by . kdr 04:29 Discharged to home ambulatory, with significant other. lp1 04:29 Condition: good 04:29 Discharge instructions given to patient, Instructed on discharge instructions, follow up and referral plans. medication usage, Demonstrated understanding of instructions, follow-up care, medications, Prescriptions given X 1. 04:30 Patient left the ED. lp1 Signatures: Dispatcher [employer] EDMS Chioma Ramsey RN RN Riley Carbone MD MD kdr Pena, Laura, RN RN 1 Frieda Hargrove [facility]
== END 2022-04-04 04:30 | disposition home or self-care (01) ==
LOC: ER 02:25
DX: I13.10 Hypertensive heart and chronic kidney disease without heart failure, with stage 1 through stage 4 chronic kidney disease, or unspecified chronic kidney disease (principal); F41.9 Anxiety disorder, unspecified; Z86.718 Personal history of other venous thrombosis and embolism; Z79.01 Long term (current) use of anticoagulants
CPT/HCPCS: 93005; 85025; 80048; 36415; 84443; 84484; 71045; J0360; 96374; 99284